=== PATIENT | male | born 1930 | race African-American/Black ===

== ENCOUNTER 2017-12-08 12:40 | Emergency (ER) | payer OTHER ==
[~2017-12-08] VITALS: Ht 182.9 cm; Wt 78.9 kg
[~2017-12-08 12:40] MED LIST: AMOX1TAB58 PO; IBUP200T44 PO; OMEG500C PO; POLY17PO29 PO
[2017-12-08] MEDS ORDERED: IPRATRPIUM/ALBUTEROL 0.5/2.5MG 3 ML NEBU. NEB ONE (13:00)
--- NOTE | 2017-12-08 13:04 | EKG ---
[facility] [address] [place] [address] Test Date: 2017-12-08 Test Time: 12:55:58 Pat Name: EAN MIRAMONTES Department: Room: Gender: M Welder Assembler: : 1930 Requested By: NICK VÁZQUEZ Order Number: [id number] Reading MD: Lavon Grider Measurements Intervals [place] Rate: 81 P: 59 ID: [id number] QRS: -59 QRSD: 100 T: 80 QT: 362 QTc: 421 Interpretive Statements SINUS RHYTHM ABNORMAL LEFT AXIS DEVIATION LEFT ANTERIOR FASCICULAR BLOCK QRS(T) CONTOUR ABNORMALITY CONSISTENT WITH ANTEROSEPTAL INFARCT PROBABLY OLD T ABNORMALITY IN HIGH LATERAL LEADS ABNORMAL ECG Electronically Signed On 12-14-2017 10:12:53 CDT by Lavon Grider
[2017-12-08 13:21] LABS: BASO % 1 % (0-3); EOS # 0.4 x10^3/uL (0.0-0.7); EOS % 7 % (0-3); HEMATOCRIT 42.7 % (39.0-53.0); HEMOGLOBIN 14.4 g/dL (13.0-17.5); LYMPH # 1.2 x10^3/uL (1.0-4.8); LYMPH % 21 % (24-48); MEAN CORPUSCULAR HEMOGLOBIN 30 pg (25-35); MEAN CORPUSCULAR HGB CONC 34 g/dL (31-37); MEAN CORPUSCULAR VOLUME 89 fL (79-100); MONO # 0.7 x10^3/uL (0.0-1.1); MONO % 12 % (0-9); NEUT # 3.6 x10^3uL (1.8-7.7); NEUT % 59 % (31-73); PLATELET COUNT 240 x10^3/uL (140-400); RED BLOOD COUNT 4.79 x10^6/uL (4.30-5.70); RED CELL DISTRIBUTION WIDTH 14.2 % (11.5-14.5)
[2017-12-08 13:29] LABS: CALCIUM 9.6 mg/dL (8.5-10.1); CREATININE 1.4 mg/dL (0.7-1.3); GFR 57.9; POTASSIUM 4.3 mmol/L (3.5-5.1)
--- NOTE | 2017-12-08 13:29 | RAD ---
Portable chest, 12/08/2017: HISTORY: Cough and congestion Comparison is made to a study from 11/15/2013. The heart size is normal. There is tortuosity of the thoracic aorta. No pulmonary infiltrate is seen. There is no evidence of pleural fluid. A small nodular opacity projected over the anterior aspect of the right sixth rib may be a costochondral ossification or represent an overlying granuloma. Old healed rib fractures are present on the left. Moderate spurring is present in the spine. IMPRESSION: 1. Small right basilar nodular opacity. Radiographic follow-up is suggested to confirm that this is a benign process. 2. No acute infiltrates. Electronically signed by: Mukesh Vieira MD (12/08/2017 1:26 PM) [facility]
[2017-12-08 13:38] LABS: ALBUMIN 3.2 g/dL (3.4-5.0); DIRECT BILIRUBIN 0.2 mg/dL (0.0-0.2); TOTAL BILIRUBIN 0.6 mg/dL (0.2-1.0); TOTAL PROTEIN 7.7 g/dL (6.4-8.2)
[2017-12-08 14:16] VITALS: BP 139/92
--- NOTE | 2017-12-08 14:18 | PHYS DOC ---
Past Medical History Past Medical History: Arthritis Past Surgical History: No Surgical History Alcohol Use: Occasionally Drug Use: None Adult General Chief Complaint Chief Complaint: SHORTNESS OF BREATH HPI HPI This is a pleasant 87-year-old male presenting the emergency department with a cough for about a week. He states he has taken medication without much relief. He feels mildly shortness of breath or any chest pain. The cough is nonproductive. He denies fevers or chills associated. He denies abdominal pain nausea or vomiting. Review of systems is negative for chest pain abdominal pain nausea vomiting diaphoresis fevers or chills. All other review of systems is negative unless otherwise noted in history of present illness. ED course: 87-year-old male presenting to the emergency department today with a nonproductive cough for about a week. Chest x-ray unremarkable. Blood work shows an elevated d-dimer. CT angiogram obtained. CBC shows normal white blood cell count. Chemistry panel shows chronic just above the range of normal. No previous for comparison. Troponins negative. D-dimer is elevated. CT angiogram shows no signs of pulmonary embolism. Signs of bronchitis on CT scan. We will discharge patient on oral prednisone to follow-up with his doctor over the next 2-3 days. The patient has been examined and was not found to have an emergency medical condition. The patient was then discharged home in stable condition to follow up with their primary care physician over the next 2-3 days. They were to return if their symptoms worsened or if they were concerned for any reason. They were also instructed to return to the emergency department if they were unable to get the recommended and appropriate follow-up. [id number] discharge instructions and return precautions were given. Patient's questions were answered to their satisfaction. Patient is comfortable with plan. Review of Systems Review of Systems SEE ABOVE. Current Medications Current Medications Current Medications Medications (Trade) Dose Ordered Sig/[facility] Start Time Stop Time Status Last Admin Dose Admin Albuterol/ Ipratropium (Duoneb) 3 ml 1X ONCE 12/08/17 13:00 12/08/17 13:01 DC 12/08/17 13:20 3 ML Info (CONTRAST GIVEN -- Rx MONITORING) 1 each PRN DAILY PRN 12/08/17 14:45 12/10/17 14:44 Iohexol (Omnipaque 300 Mg/ml) 60 ml 1X ONCE 12/08/17 14:30 12/08/17 14:31 DC 12/08/17 14:33 60 ML Allergies Allergies Allergies Coded Allergies Type Severity Reaction Last Updated Verified No Known Drug Allergies 11/13/13 No Physical Exam Physical Exam SEE ABOVE Constitutional: Well developed, well nourished, no acute distress, non-toxic appearance. HENT: Normocephalic, atraumatic, bilateral external ears normal, oropharynx moist, no oral exudates, nose normal. [] Eyes: PERRLA, EOMI, conjunctiva normal, no discharge. [] Neck: Normal range of motion, no tenderness, supple, no stridor. Cardiovascular:Heart rate regular rhythm, no murmur [] Lungs & Thorax: Clear lungs bilaterally. no wheezing on exam. Abdomen: Bowel sounds normal, soft, no tenderness, no masses, no pulsatile masses. Skin: Warm, dry, no erythema, no rash. [] Back: No tenderness, no CVA tenderness. Extremities: No tenderness, no cyanosis, no clubbing, ROM intact, no edema. No clinical evidence of DVT. Neurologic: Alert and oriented X 3, normal motor function, normal sensory function, no focal deficits noted. Psychologic: Affect normal, judgement normal, mood normal. [] Current Patient Data Vital Signs Vital Signs Date Time Temp Pulse Resp B/P (MAP) Pulse Ox O2 Delivery O2 Flow Rate FiO2 12/08/17 13:20 95 Room Air 12/08/17 13:16 76 20 156/88 (110) 12/08/17 12:43 97.1 97.1 Lab Values Laboratory Tests Test 12/08/17 13:05 White Blood Count 6.0 x10^3/uL (4.0-11.0) Red Blood Count 4.79 x10^6/uL (4.30-5.70) Hemoglobin 14.4 g/dL (13.0-17.5) Hematocrit 42.7 % (39.0-53.0) Mean Corpuscular Volume 89 fL (79-100) Mean Corpuscular Hemoglobin 30 pg (25-35) Mean Corpuscular Hemoglobin Concent 34 g/dL (31-37) Red Cell Distribution Width 14.2 % (11.5-14.5) Platelet Count 240 x10^3/uL (140-400) Neutrophils (%) (Auto) 59 % (31-73) Lymphocytes (%) (Auto) 21 % (24-48) L Monocytes (%) (Auto) 12 % (0-9) H Eosinophils (%) (Auto) 7 % (0-3) H Basophils (%) (Auto) 1 % (0-3) Neutrophils # (Auto) 3.6 x10^3uL (1.8-7.7) Lymphocytes # (Auto) 1.2 x10^3/uL (1.0-4.8) Monocytes # (Auto) 0.7 x10^3/uL (0.0-1.1) Eosinophils # (Auto) 0.4 x10^3/uL (0.0-0.7) Basophils # (Auto) 0.0 x10^3/uL (0.0-0.2) D-Dimer (Beverly) 0.90 ug/mlFEU (0.00-0.50) H Sodium Level 140 mmol/L (136-145) Potassium Level 4.3 mmol/L (3.5-5.1) Chloride Level 102 mmol/L (98-107) Carbon Dioxide Level 32 mmol/L (21-32) Anion Gap 6 (6-14) Blood Urea Nitrogen 19 mg/dL (8-26) Creatinine 1.4 mg/dL (0.7-1.3) H Estimated GFR (Cockcroft-Gault) 57.9 Glucose Level 116 mg/dL (70-99) H Calcium Level 9.6 mg/dL (8.5-10.1) Total Bilirubin 0.6 mg/dL (0.2-1.0) Direct Bilirubin 0.2 mg/dL (0.0-0.2) Aspartate Amino Transferase (AST) 26 U/L (15-37) Alanine Aminotransferase (ALT) 27 U/L (16-63) Alkaline Phosphatase 87 U/L (46-116) Troponin I Quantitative < 0.017 ng/mL (0.000-0.055) GK-Rgn-W-Type Natriuretic Peptide 237 pg/mL (0-449) Total Protein 7.7 g/dL (6.4-8.2) Albumin 3.2 g/dL (3.4-5.0) L Lipase 120 U/L (73-393) Laboratory Tests 12/08/17 13:05 Laboratory Tests 12/08/17 13:05 EKG EKG [] Radiology/Procedures Radiology/Procedures [] Course & Med Decision Making Course & Med Decision Making Pertinent Labs and Imaging studies reviewed. (See chart for details) [] Dragon Disclaimer Dragon Disclaimer This electronic medical record was generated, in whole or in part, using a voice recognition dictation system. Departure Departure Impression: Primary Impression: Shortness of breath Additional Impression: Cough Disposition: HOME, SELF-CARE Condition: STABLE Referrals: CAROLA ENRIQUE BAG PRESSER (PCP) Patient Instructions: Acute Bronchitis Additional Instructions: Thank you for allowing us to participate in your care today. Return to the emergency department you have any new or worsening symptoms, or if you are concerned for any reason. Return to emergency department if you have any new or concerning symptoms including but not limited to fever, chills, nausea, vomiting, intractable pain, any new rashes, chest pain, shortness of air , uncontrolled bleeding, difficulty breathing, and/or vision loss. Follow up with your primary care physician within 3 days. Call your Primary Doctor tomorrow and inform them of your visit today. If you do not have a primary care provider we are happy to provide you with a list of our primary care providers contact information. This condition should be evaluated by your primary care physician and any recommended consulting services for continued management within 2-3 days after discharge. If at any time, you are having difficulty getting into your primary care doctor or a specialist, return to the emergency department. Scripts Albuterol Sulfate (PROAIR HFA INHALER) 8.5 Gm Hfa.aer.ad 1 PUFF INH PRN Q6HRS PRN for SHORTNESS OF BREATH, #1 INHALER 0 Refills Prov: NICK VÁZQUEZ MD 12/08/17 Prednisone (PREDNISONE) 50 Mg Tablet 50 MG PO DAILY for 5 Days, #5 TAB Prov: NICK VÁZQUEZ MD 12/08/17 Problem Qualifiers NICK VÁZQUEZ MD Dec 08, 2017 14:18
[2017-12-08] MEDS ORDERED: IOHEXOL 300 MG/ML 100ML VIAL. IV ONE (14:30)
[2017-12-08] MEDS ORDERED: CONTRAST GIVEN. MC PRN (14:45)
--- NOTE | 2017-12-08 14:59 | RAD ---
CTA of the chest with contrast, 12/08/2017: HISTORY: Shortness of breath Multidetector CT imaging was performed following an IV bolus injection of iodinated contrast material. Multiplanar reconstructions were produced including coronal MIP images. The central pulmonary arteries are well opacified and no filling defects are seen to suggest pulmonary emboli. There is moderate calcific plaquing of the thoracic aorta. There is mild dilatation of the aorta just distal to the origin of the left subclavian artery. The ascending aorta measures 3.5 cm in width. The mid aortic arch measures approximately 2.8 cm in width. The proximal descending thoracic aorta measures 4.0 cm in width. There is no evidence of aortic dissection. There is a mildly prominent density adjacent to the azygos vein. It is unclear whether this represents a dilated segment of azygos vein or a mildly enlarged lymph node. There is a mildly enlarged subcarinal lymph node measuring 1.2 cm in short axis dimension. No hilar adenopathy is seen. A calcified granuloma is present laterally in the right lung. Several peripheral linear opacities in the right lower lobe probably represent scars. There appears to be mild bronchial wall thickening as best the right lower lobe. There is mild streaky atelectasis or scarring in the inferior lingula on the left. Several tiny subpleural and perifissural opacities in both lungs are most likely benign. There is no evidence of pleural fluid. IMPRESSION: 1. No CT evidence of central pulmonary emboli. 2. Moderate aortic atherosclerosis with mild dilatation of the proximal descending thoracic aorta. 3. Bilateral pleural/parenchymal scarring. 4. Mild streaky atelectasis or scarring in the lingula. 5. Mild bronchial wall thickening in the right lower lobe compatible with bronchitis. PQRS Compliance Statement: One or more of the following individualized dose reduction techniques were utilized for this examination: 1. Automated exposure control 2. Adjustment of the mA and/or kV according to patient size 3. Use of iterative reconstruction technique Electronically signed by: Mukesh Vieira MD (12/08/2017 2:55 PM) [facility]
[2017-12-08] MEDS ORDERED: PRED50TA PO (15:21)
[2017-12-08] MEDS ORDERED: PROAIR HFA8.5 GM INH (15:22)
== END 2017-12-08 15:33 | disposition home or self-care (01) ==
LOC: ER 12:40
DX: R05 Cough (principal); R06.02 Shortness of breath
CPT/HCPCS: 36415; 71045; 71275; 80048; 80076; 83690; 83880; 84484; 85025; 85379; 93005; 94640; 99285; J7620; Q9967

== ENCOUNTER 2018-07-15 10:25 | Emergency (ER) | payer OTHER ==
[~2018-07-15] VITALS: Ht 182.9 cm; Wt 78.9 kg
[~2018-07-15 10:25] MED LIST changes: +ALBU2.5V8 INH; +PRED50TA PO
--- NOTE | 2018-07-15 10:56 | PHYS DOC ---
Past Medical History Past Medical History: Arthritis, Bronchitis Past Surgical History: No Surgical History Alcohol Use: Occasionally Drug Use: None Adult General Chief Complaint Chief Complaint: COUGH HPI HPI 88-year-old male presenting the emergency department today with a cough with clear sputum production. Been present for 2-3 days. He denies any fevers at home. Mild dyspnea on exertion. He denies unilateral leg swelling hemoptysis or recent immobilization or surgery. He denies a history of DVT or PE. He denies chest pain. Review of systems is negative for chest pain abdominal pain nausea vomiting diaphoresis fevers or chills. All other review of systems is negative unless otherwise noted in history of present illness. ED course: 88-year-old male presenting with a chronic mildly productive cough. Blood pressure elevated. Otherwise patient is breathing comfortably and afebrile the examination room. Chest x-ray and blood work ordered along with the administration of the DuoNeb. Chest x-ray does not suggest an infiltrate. Given his productive cough we'll give him azithromycin with an albuterol to follow-up with his doctor in a few days.The patient has been examined and was not found to have an emergency medical condition. The patient was then discharged home in stable condition to follow up with their primary care physician over the next 1- 2 days. They were to return if their symptoms worsened or if they were concerned for any reason. They were also instructed to return to the emergency department if they were unable to get the recommended and appropriate follow-up. [id number] discharge instructions and return precautions were given. Patient's questions were answered to their satisfaction. Patient is comfortable with plan. Review of Systems Review of Systems SEE ABOVE. Current Medications Current Medications Current Medications Medications (Trade) Dose Ordered Sig/[facility] Start Time Stop Time Status Last Admin Dose Admin Albuterol/ Ipratropium (Duoneb) 3 ml 1X ONCE 07/15/18 11:00 07/15/18 11:01 DC 07/15/18 11:10 3 ML Allergies Allergies Allergies Coded Allergies Type Severity Reaction Last Updated Verified No Known Drug Allergies 11/13/13 No Physical Exam Physical Exam SEE ABOVE Constitutional: Well developed, well nourished, no acute distress, non-toxic appearance. HENT: Normocephalic, atraumatic, bilateral external ears normal, oropharynx moist, no oral exudates, nose normal. [] Eyes: PERRLA, EOMI, conjunctiva normal, no discharge. Neck: Normal range of motion, no tenderness, supple, no stridor. Cardiovascular:Heart rate regular rhythm, no murmur [] Lungs & Thorax: Mildly prolonged expiratory phase without any wheezing. Other cheung clear. Abdomen: Bowel sounds normal, soft, no tenderness, no masses, no pulsatile masses. Skin: Warm, dry, no erythema, no rash. [] Back: No tenderness, no CVA tenderness. Extremities: No tenderness, no cyanosis, no clubbing, ROM intact, no edema. [] Neurologic: Alert and oriented X 3, normal motor function, normal sensory function, no focal deficits noted. Psychologic: Affect normal, judgement normal, mood normal. [] Current Patient Data Vital Signs Vital Signs Date Time Temp Pulse Resp B/P (MAP) Pulse Ox O2 Delivery O2 Flow Rate FiO2 07/15/18 11:10 94 Room Air 07/15/18 10:35 98.0 89 24 189/94 (125) 98.0 Lab Values Laboratory Tests Test 07/15/18 10:52 White Blood Count 4.7 x10^3/uL (4.0-11.0) Red Blood Count 4.76 x10^6/uL (4.30-5.70) Hemoglobin 14.2 g/dL (13.0-17.5) Hematocrit 42.9 % (39.0-53.0) Mean Corpuscular Volume 90 fL (79-100) Mean Corpuscular Hemoglobin 30 pg (25-35) Mean Corpuscular Hemoglobin Concent 33 g/dL (31-37) Red Cell Distribution Width 14.3 % (11.5-14.5) Platelet Count 179 x10^3/uL (140-400) Neutrophils (%) (Auto) 72 % (31-73) Lymphocytes (%) (Auto) 11 % (24-48) L Monocytes (%) (Auto) 12 % (0-9) H Eosinophils (%) (Auto) 5 % (0-3) H Basophils (%) (Auto) 1 % (0-3) Neutrophils # (Auto) 3.4 x10^3uL (1.8-7.7) Lymphocytes # (Auto) 0.5 x10^3/uL (1.0-4.8) L Monocytes # (Auto) 0.6 x10^3/uL (0.0-1.1) Eosinophils # (Auto) 0.2 x10^3/uL (0.0-0.7) Basophils # (Auto) 0.0 x10^3/uL (0.0-0.2) Sodium Level 140 mmol/L (136-145) Potassium Level 4.7 mmol/L (3.5-5.1) Chloride Level 105 mmol/L (98-107) Carbon Dioxide Level 32 mmol/L (21-32) Anion Gap 3 (6-14) L Blood Urea Nitrogen 21 mg/dL (8-26) Creatinine 1.2 mg/dL (0.7-1.3) Estimated GFR (Cockcroft-Gault) 69.0 Glucose Level 140 mg/dL (70-99) H Calcium Level 9.5 mg/dL (8.5-10.1) Laboratory Tests 07/15/18 10:52 Laboratory Tests 07/15/18 10:52 EKG EKG [] Radiology/Procedures Radiology/Procedures [] Course & Med Decision Making Course & Med Decision Making Pertinent Labs and Imaging studies reviewed. (See chart for details) [] Dragon Disclaimer Dragon Disclaimer This electronic medical record was generated, in whole or in part, using a voice recognition dictation system. Departure Departure Impression: Primary Impression: Cough Disposition: 01 HOME, SELF-CARE Condition: STABLE Referrals: CAROLA ENRIQUE MAGAZINE EDITOR (PCP) Patient Instructions: Cough, Adult Additional Instructions: Thank you for allowing us to participate in your care today. Return to the emergency department you have any new or worsening symptoms, or if you are concerned for any reason. Return to emergency department if you have any new or concerning symptoms including but not limited to fever, chills, nausea, vomiting, intractable pain, any new rashes, chest pain, shortness of air, uncontrolled bleeding, difficulty breathing, and/or vision loss. Follow up with your primary care physician within 1-2 days. Call your Primary Doctor tomorrow and inform them of your visit today. If you do not have a primary care provider we are happy to provide you with a list of our primary care providers contact information. This condition should be evaluated by your primary care physician and any recommended consulting services for continued management within 2 days after discharge. If at any time, you are having difficulty getting into your primary care doctor or a specialist, return to the emergency department. Scripts Benzonatate (TESSALON PERLE) 100 Mg Capsule 1 CAP PO TID for 5 Days, #15 CAP Prov: NICK VÁZQUEZ MD 07/15/18 Albuterol Sulfate (PROAIR HFA INHALER) 8.5 Gm Hfa.aer.ad 1 PUFF INH PRN Q6HRS PRN for SHORTNESS OF BREATH for 7 Days, #1 INHALER 0 Refills Prov: NICK VÁZQUEZ MD 07/15/18 Azithromycin (AZITHROMYCIN TABLET) 250 Mg Tablet 1 PKG PO UD, #6 TAB Prov: NICK VÁZQUEZ MD 07/15/18 NICK VÁZQUEZ MD Jul 15, 2018 10:56
[2018-07-15] MEDS ORDERED: IPRATRPIUM/ALBUTEROL 0.5/2.5MG 3 ML NEBU. NEB ONE (11:00)
--- NOTE | 2018-07-15 11:15 | RAD ---
CHEST AP ONLY History: productive cough. The cardiac silhouette is stable as compared with prior study of 12/08/2017. Aortic tortuosity again seen. No evidence of pneumothorax. Mild blunting of right costophrenic angle, somewhat similar to previous study, may be due to scarring. No large effusion is seen. No airspace consolidation is identified. Multiple old rib fractures are seen. Degenerative changes at the shoulders with evidence of right shoulder rotator cuff tear. Small nodular opacity at the right lung base is stable since previous study. IMPRESSION: Stable exam, no acute consolidating infiltrate. Electronically signed by: Kervin Perez MD (07/15/2018 11:13 AM) [id number]
[2018-07-15 11:23] LABS: CALCIUM 9.5 mg/dL (8.5-10.1); CREATININE 1.2 mg/dL (0.7-1.3); POTASSIUM 4.7 mmol/L (3.5-5.1)
[2018-07-15 11:31] LABS: BASO % 1 % (0-3); EOS # 0.2 x10^3/uL (0.0-0.7); EOS % 5 % (0-3); HEMATOCRIT 42.9 % (39.0-53.0); HEMOGLOBIN 14.2 g/dL (13.0-17.5); LYMPH # 0.5 x10^3/uL (1.0-4.8); LYMPH % 11 % (24-48); MEAN CORPUSCULAR HEMOGLOBIN 30 pg (25-35); MEAN CORPUSCULAR HGB CONC 33 g/dL (31-37); MEAN CORPUSCULAR VOLUME 90 fL (79-100); MONO # 0.6 x10^3/uL (0.0-1.1); MONO % 12 % (0-9); NEUT # 3.4 x10^3uL (1.8-7.7); NEUT % 72 % (31-73); PLATELET COUNT 179 x10^3/uL (140-400); RED BLOOD COUNT 4.76 x10^6/uL (4.30-5.70); RED CELL DISTRIBUTION WIDTH 14.3 % (11.5-14.5); WHITE BLOOD COUNT 4.7 x10^3/uL (4.0-11.0)
[2018-07-15] MEDS ORDERED: BENZ100C PO (11:45)
[2018-07-15] MEDS ORDERED: AZIT250T6 PO (11:45)
[2018-07-15] MEDS ORDERED: ALBU2.5V8 INH (11:45)
[2018-07-15 12:02] VITALS: BP 145/81
--- NOTE | 2018-07-15 14:27 | EKG ---
[facility] [address] [place] [address] Test Date: 2018-07-15 Test Time: 10:38:52 Pat Name: EAN MIRAMONTES Department: Room: Gender: M Laboratory Engineer: : [id number] Requested By: NICK VÁZQUEZ Order Number: [id number] Reading MD: Burke Jolly Measurements Intervals [place] Rate: 84 P: 62 DE: 162 QRS: -56 QRSD: 106 T: 87 QT: 350 QTc: 417 Interpretive Statements SINUS RHYTHM ABNORMAL LEFT AXIS DEVIATION LEFT ANTERIOR FASCICULAR BLOCK QRS(T) CONTOUR ABNORMALITY CONSISTENT WITH ANTEROSEPTAL INFARCT AGE UNDETERMINED T ABNORMALITY IN HIGH LATERAL LEADS ABNORMAL ECG Electronically Signed On 07-20-2018 12:08:22 CDT by Burke Jolly
== END 2018-07-15 12:19 | disposition home or self-care (01) ==
LOC: ER 10:25
DX: R05 Cough (principal); R06.00 Dyspnea, unspecified
CPT/HCPCS: 36415; 71045; 80048; 85025; 93005; 94640; 99285; J7620

== ENCOUNTER 2018-08-05 10:41 | Inpatient (IN) | payer OTHER ==
[~2018-08-05] VITALS: Ht 182.9 cm; Wt 76.7 kg
[~2018-08-05 10:41] MED LIST changes: +AZIT250T6 PO; +BENZ100C PO
--- NOTE | 2018-08-05 11:23 | PDOC1 ---
History and Physical Date of Admission Date of Admission DATE: 08/05/18 TIME: 11:23 Identification/Chief Complaint Chief Complaint SEEN IN ER , presents to the ED today complaining of weakness and poor appetite for 2 days. Patient states his also had a cough since we saw him in July 15, 2018. Patient denies any fever. Denies any nasal congestion denies any chest pain or shortness of breath. denies weight loss ua abnormal, lives alone Past Medical History Past Medical History Past Medical History Past Medical History Osteoarthritis Past Surgical History Past Surgical History: small bowel obstruction 2014 Family History Family History: No Significant Current Problem List Problem List Cardiovascular: Hyperlipidemia GI: No pertinent hx Musculoskeletal: Osteoarthritis Past Surgical History Past Surgical History: No pertinent history Family History Family History: No Significant, High Cholestrol Social History Smoke: No ALCOHOL: none Drugs: None Current Medications Current Medications Active Scripts Active Tessalon Perle (Benzonatate) 100 Mg Capsule 1 Cap PO TID 5 Days Proair Hfa Inhaler (Albuterol Sulfate) 8.5 Gm Hfa.aer.ad 1 Puff INH PRN Q6HRS PRN 7 Days Azithromycin Tablet (Azithromycin) 250 Mg Tablet 1 Pkg PO UD Proair Hfa Inhaler (Albuterol Sulfate) 8.5 Gm Hfa.aer.ad 1 Puff INH PRN Q6HRS PRN Prednisone 50 Mg Tablet 50 Mg PO DAILY 5 Days Augmentin 500-125 Tablet (Amoxicillin/Potassium Clav) 1 Each Tablet 1 Tab PO BID Miralax (Polyethylene Glycol 3350) 17 Gm Powd.pack 1 Packet PO DAILY Reported Fish Oil ([place]-3 Fatty Acids) 500 Mg Capsule.dr 500 Mg PO DAILY08 Allergies Allergies: Coded Allergies: No Known Drug Allergies (Unverified , 11/13/13) ROS Review of System Review of Systems Review of Systems Constitutional: Reports generalized weakness, reports poor appetite, denies fever or chills Eyes: Denies change in visual acuity, redness, or eye pain [] HENT: Denies nasal congestion or sore throat [] Respiratory: Reports cough, denies shortness of breath [] Cardiovascular: No additional information not addressed in HPI [] GI: Denies abdominal pain, nausea, vomiting, bloody stools or diarrhea [] : Denies dysuria or hematuria [] Musculoskeletal: Denies back pain or joint pain [] Integument: Denies rash or skin lesions [] Neurologic: Denies headache, focal weakness or sensory changes [] 14 PT systems were reviewed and found to be within normal limits, except as documented Eyes: Yes Decreased vision Hematological and Lymphatic: No: Bleeding Problems, Blood Clots, Blood Transfusions, Brusing, Night Sweats, Pallor, Swollen Lymph Nodes, Other Respiratory: YES: Cough; No: Hemoptysis, Orthopnea, Pleuritic Pain, Shortness of breath, SOB with excertion, Sputum Changes, Stridor, Tachypnea, Wheezing, Other Cardiovascular: No Chest Pain, No Palpitations, No Orthopnea, No Paroxysmal Noc. Dyspnea, No Edema, No Lt Headedness, No Other Neurological: Yes Gait Disturbance Physical Exam Physical Exam Physical Exam Physical Exam Constitutional: Well developed, well nourished, no acute distress, non-toxic appearance. [] HENT: Normocephalic, atraumatic, bilateral external ears normal, oropharynx moist, no oral exudates, nose normal. [] Eyes: PERRLA, EOMI, conjunctiva normal, no discharge. [] Neck: Normal range of motion, no tenderness, supple, no stridor. [] Cardiovascular:Heart rate regular rhythm, no murmur [] Lungs & Thorax: Bilateral breath sounds clear to auscultation [] Abdomen: Bowel sounds normal, soft, no tenderness, no masses, no pulsatile masses. [] Skin: Warm, dry, no erythema, no rash. [] Back: No tenderness, no CVA tenderness. [] Extremities: No tenderness, no cyanosis, no clubbing, ROM intact, no edema. [] Neurologic: Alert and oriented X 3, normal motor function, normal sensory function, no focal deficits noted. [] Psychologic: Affect normal, judgement normal, mood normal. [] General: Alert, Oriented X3, Cooperative, mild distress Lungs: Clear to auscultation, Normal air movement Heart: RRR Abdomen: Normal bowel sounds, Soft Rectal Exam: not examined Extremities: No cyanosis Neuro: Normal speech, Cranial nerves 3-12 NL Psych/Mental Status: Mental status NL, Mood NL Vitals Vitals Vital Signs Date Time Temp Pulse Resp B/P (MAP) Pulse Ox O2 Delivery O2 Flow Rate FiO2 08/05/18 10:59 98.7 107 20 143/84 (103) 96 Room Air 98.7 Images Images EXAM: CHEST 1 VIEW History: Cough COMPARISON: 07/15/2018 TECHNIQUE: Single portable radiograph of the chest FINDINGS: The cardiac silhouette is unremarkable. The lungs are clear bilaterally. The costophrenic sulci are clear and well demarcated. IMPRESSION: No radiographic evidence of an acute cardiopulmonary process. Electronically signed by: Yovanny Jiménez MD (08/05/2018 11:32 AM) [place] [id number] VTE Prophylaxis Ordered VTE Prophylaxis Devices: Yes VTE Pharmacological Prophylaxi: Yes Assessment/Plan Assessment/Plan impression 1. generalized weakness 2, cough, bronchitis 3. leukocytosis 4. possible uti plan blood cult iv rocephin tele monitor neurochecks q 4 hrs PT/OT URINE CULT dvt prophylaxis home meds ct head TOM OROZCO MD August 05, 2018 11:23
[2018-08-05] MEDS ORDERED: IV NORMAL SALINE 1000ML BAG 1,000 ML IV ONE ×2 (11:30→12:30)
[2018-08-05 11:33] LABS: BASO % 0 % (0-3); EOS % 0 % (0-3); HEMATOCRIT 43.3 % (39.0-53.0); LYMPH # 0.3 x10^3/uL (1.0-4.8); LYMPH % 3 % (24-48); MEAN CORPUSCULAR HEMOGLOBIN 29 pg (25-35); MEAN CORPUSCULAR HGB CONC 32 g/dL (31-37); MEAN CORPUSCULAR VOLUME 89 fL (79-100); MONO # 0.9 x10^3/uL (0.0-1.1); MONO % 8 % (0-9); NEUT # 10.9 x10^3uL (1.8-7.7); NEUT % 90 % (31-73); PLATELET COUNT 253 x10^3/uL (140-400); RED BLOOD COUNT 4.87 x10^6/uL (4.30-5.70); RED CELL DISTRIBUTION WIDTH 14.1 % (11.5-14.5); WHITE BLOOD COUNT 12.1 x10^3/uL (4.0-11.0)
--- NOTE | 2018-08-05 11:35 | RAD ---
EXAM: CHEST 1 VIEW History: Cough COMPARISON: 07/15/2018 TECHNIQUE: Single portable radiograph of the chest FINDINGS: The cardiac silhouette is unremarkable. The lungs are clear bilaterally. The costophrenic sulci are clear and well demarcated. IMPRESSION: No radiographic evidence of an acute cardiopulmonary process. Electronically signed by: Yovanny Jiménez MD (08/05/2018 11:32 AM) [facility]
[2018-08-05 11:46] LABS: CALCIUM 9.8 mg/dL (8.5-10.1); CREATININE 1.3 mg/dL (0.7-1.3); GFR 62.9; POTASSIUM 4.2 mmol/L (3.5-5.1)
[2018-08-05 11:51] LABS: ALBUMIN 2.9 g/dL (3.4-5.0); ALBUMIN/GLOBULIN RATIO 0.6 (1.0-1.7); MAGNESIUM 2.1 mg/dL (1.8-2.4); TOTAL PROTEIN 7.7 g/dL (6.4-8.2)
[2018-08-05 11:58] LABS: % BANDS 30 % (0-9); % LYMPHS 3 % (24-48); % MONOS 9 % (0-10); % SEGS 58 % (35-66); PLT ESTIMATE ADEQUATE (ADEQUATE)
[2018-08-05 12:00] LABS: CREATINE KINASE 73 U/L (39-308)
[2018-08-05] MEDS ORDERED: ACETAMINOPHEN 325 MG TABLET. PO PRN (12:30)
[2018-08-05] MEDS ORDERED: ONDANSETRON PF 4 MG/2 ML VIAL. IV PRN (12:30)
--- NOTE | 2018-08-05 12:44 | EKG ---
[facility] [address] [place] [address] Test Date: 2018-08-05 Test Time: 11:13:18 Pat Name: AEN MIRAMONTES Department: Room: Gender: M Hands Parter: : 1930 Requested By: BERT CHAVEZ Order Number: [id number] Reading MD: Lavon Grider Measurements Intervals Flanagan Rate: 103 P: 65 MS: 160 QRS: -62 QRSD: 106 T: 88 QT: 324 QTc: 426 Interpretive Statements SINUS TACHYCARDIA ABNORMAL LEFT AXIS DEVIATION LEFT ANTERIOR FASCICULAR BLOCK QRS(T) CONTOUR ABNORMALITY CONSISTENT WITH ANTEROSEPTAL INFARCT PROBABLY OLD T ABNORMALITY IN HIGH LATERAL LEADS ABNORMAL ECG Electronically Signed On 08-26-2018 12:29:40 CDT by Lavon Grider
[2018-08-05 13:52] LABS: BILIRUBIN,URINE NEGATIVE (NEG); CLARITY,URINE CLEAR; COLOR,URINE AMBER; NITRITE,URINE NEGATIVE (NEG); PH,URINE 6.5; PROTEIN,URINE NEGATIVE (NEG-TRACE); UROBILINOGEN,URINE 0.2 mg/dL (0.2 mg/dL)
[2018-08-05 14:07] LABS: BACTERIA,URINE 0 /HPF (0-FEW); RBC,URINE OCC /HPF (0-2); SQUAMOUS EPITHELIAL CELL,UR OCC /LPF
--- NOTE | 2018-08-05 14:08 | PHYS DOC ---
Past Medical History Past Medical History: Arthritis, Bronchitis Past Surgical History: No Surgical History Alcohol Use: Occasionally Drug Use: None Adult General Chief Complaint Chief Complaint: WEAKNESS/GENERALIZED HPI HPI Patient is a 88 year old female with no significant medical history who presents to the ED today complaining of weakness and poor appetite for 2 days. Patient states his also had a cough since we saw him in July 15, 2018. Patient denies any fever. Denies any nasal congestion denies any chest pain or shortness of breath. Review of Systems Review of Systems Constitutional: Reports generalized weakness, reports poor appetite, denies fe rush or chills Eyes: Denies change in visual acuity, redness, or eye pain [] HENT: Denies nasal congestion or sore throat [] Respiratory: Reports cough, denies shortness of breath [] Cardiovascular: No additional information not addressed in HPI [] GI: Denies abdominal pain, nausea, vomiting, bloody stools or diarrhea [] : Denies dysuria or hematuria [] Musculoskeletal: Denies back pain or joint pain [] Integument: Denies rash or skin lesions [] Neurologic: Denies headache, focal weakness or sensory changes [] All other systems were reviewed and found to be within normal limits, except as documented in this note. Current Medications Current Medications Current Medications Medications (Trade) Dose Ordered Sig/Meghana Start Time Stop Time Status Last Admin Dose Admin Acetaminophen (Tylenol) 650 mg PRN Q4HRS PRN 08/05/18 12:30 08/06/18 12:29 Ondansetron HCl (Zofran) 4 mg PRN Q8HRS PRN 08/05/18 12:30 08/06/18 12:29 Sodium Chloride 1,000 ml @ 75 mls/hr 1X ONCE 08/05/18 12:30 08/06/18 01:49 Allergies Allergies Allergies Coded Allergies Type Severity Reaction Last Updated Verified No Known Drug Allergies 11/13/13 No Physical Exam Physical Exam Constitutional: Well developed, well nourished, no acute distress, non-toxic appearance. [] HENT: Normocephalic, atraumatic, bilateral external ears normal, oropharynx moist, no oral exudates, nose normal. [] Eyes: PERRLA, EOMI, conjunctiva normal, no discharge. [] Neck: Normal range of motion, no tenderness, supple, no stridor. [] Cardiovascular:Heart rate regular rhythm, no murmur [] Lungs & Thorax: Bilateral breath sounds clear to auscultation [] Abdomen: Bowel sounds normal, soft, no tenderness, no masses, no pulsatile masses. [] Skin: Warm, dry, no erythema, no rash. [] Back: No tenderness, no CVA tenderness. [] Extremities: No tenderness, no cyanosis, no clubbing, ROM intact, no edema. [] Neurologic: Alert and oriented X 3, normal motor function, normal sensory function, no focal deficits noted. [] Psychologic: Affect normal, judgement normal, mood normal. [] Current Patient Data Vital Signs Vital Signs Date Time Temp Pulse Resp B/P (MAP) Pulse Ox O2 Delivery O2 Flow Rate FiO2 08/05/18 12:53 97 95 08/05/18 10:59 98.7 20 143/84 (103) Room Air 98.7 Lab Values Laboratory Tests Test 08/05/18 11:20 White Blood Count 12.1 x10^3/uL (4.0-11.0) H Red Blood Count 4.87 x10^6/uL (4.30-5.70) Hemoglobin 14.0 g/dL (13.0-17.5) Hematocrit 43.3 % (39.0-53.0) Mean Corpuscular Volume 89 fL (79-100) Mean Corpuscular Hemoglobin 29 pg (25-35) Mean Corpuscular Hemoglobin Concent 32 g/dL (31-37) Red Cell Distribution Width 14.1 % (11.5-14.5) Platelet Count 253 x10^3/uL (140-400) Neutrophils (%) (Auto) 90 % (31-73) H Lymphocytes (%) (Auto) 3 % (24-48) L Monocytes (%) (Auto) 8 % (0-9) Eosinophils (%) (Auto) 0 % (0-3) Basophils (%) (Auto) 0 % (0-3) Neutrophils # (Auto) 10.9 x10^3uL (1.8-7.7) H Lymphocytes # (Auto) 0.3 x10^3/uL (1.0-4.8) L Monocytes # (Auto) 0.9 x10^3/uL (0.0-1.1) Eosinophils # (Auto) 0.0 x10^3/uL (0.0-0.7) Basophils # (Auto) 0.0 x10^3/uL (0.0-0.2) Segmented Neutrophils % 58 % (35-66) Band Neutrophils % 30 % (0-9) H Lymphocytes % 3 % (24-48) L Monocytes % 9 % (0-10) Platelet Estimate Adequate (ADEQUATE) Sodium Level 139 mmol/L (136-145) Potassium Level 4.2 mmol/L (3.5-5.1) Chloride Level 102 mmol/L (98-107) Carbon Dioxide Level 29 mmol/L (21-32) Anion Gap 8 (6-14) Blood Urea Nitrogen 29 mg/dL (8-26) H Creatinine 1.3 mg/dL (0.7-1.3) Estimated GFR (Cockcroft-Gault) 62.9 BUN/Creatinine Ratio 22 (6-20) H Glucose Level 138 mg/dL (70-99) H Calcium Level 9.8 mg/dL (8.5-10.1) Magnesium Level 2.1 mg/dL (1.8-2.4) Total Bilirubin 1.0 mg/dL (0.2-1.0) Aspartate Amino Transferase (AST) 26 U/L (15-37) Alanine Aminotransferase (ALT) 26 U/L (16-63) Alkaline Phosphatase 86 U/L (46-116) Creatine Kinase 73 U/L (39-308) Creatine Kinase MB (Mass) 1.0 ng/mL (0.0-3.6) Creatine Kinase MB Relative Index % (0-4) Troponin I Quantitative < 0.017 ng/mL (0.000-0.055) WG-Xhw-[id number]-Type Natriuretic Peptide 267 pg/mL (0-449) Total Protein 7.7 g/dL (6.4-8.2) Albumin 2.9 g/dL (3.4-5.0) L Albumin/Globulin Ratio 0.6 (1.0-1.7) L Laboratory Tests 08/05/18 11:20 Laboratory Tests 08/05/18 11:20 EKG EKG 11:[address] Harding sinus tachycardia HR 103 no STEMI[] Radiology/Procedures Radiology/Procedures []PROCEDURE: PORTABLE CHEST 1V EXAM: CHEST 1 VIEW History: Cough COMPARISON: 07/15/2018 TECHNIQUE: Single portable radiograph of the chest FINDINGS: The cardiac silhouette is unremarkable. The lungs are clear bilaterally. The costophrenic sulci are clear and well demarcated. IMPRESSION: No radiographic evidence of an acute cardiopulmonary process. Electronically signed by: Yovanny Jiménez MD (08/05/2018 11:32 AM) [facility] DICTATED and SIGNED BY: YOVANNY JIMÉNEZ MD DATE: 08/05/18 113 Course & Med Decision Making Course & Med Decision Making Pertinent Labs and Imaging studies reviewed. (See chart for details) His is a 88-year-old male patient presented to the ED today complaining of poor appetite and generalized weakness for 2 days. Also complaining of a cough since July 15, 2018 when we saw him in the ED. CBC with a WBC of 12.1, CMP with glucose of 113, anion gap is normal, BUN 29. Chest x-ray is negative for pneumonia. Patient was started on IV fluids. Spoke with Dr. Bernard who accepted patient for admission. Dragon Disclaimer Dragon Disclaimer This electronic medical record was generated, in whole or in part, using a voice recognition dictation system. Departure Departure Impression: Primary Impression: Generalized weakness Additional Impression: Cough Disposition: ADMITTED INPATIENT Condition: STABLE Referrals: CAROLA EN[facility]IST[facility] (PCP) Problem Qualifiers BERT CHAVEZ APRN August 05, 2018 14:08
[2018-08-05 15:20] VITALS: BP 134/80
[2018-08-05] MEDS ORDERED: ALBUTEROL SULFATE 2.5 MG/3 ML NEBU. INH PRN (17:15)
[2018-08-05] MEDS ORDERED: cefTRIAXone IV Push 1 GM VIAL. IVP SCH (18:00)
[2018-08-05 19:00] VITALS: BP 139/82
--- NOTE | 2018-08-05 19:37 | PDOC2 ---
NEUROLOGY CONSULT Date of Admission Date of Admission DATE: 08/05/18 TIME: 19:28 Reason for Consult Reason for Consult: IMPRESSION: Generalized weakness. Cognitive impairment. HTN HLD. CHF? OA. RECOMMENDATIONS/PLAN: HCT and CCT w/o contrast. Lab: see orders. Treat medical diseases. OT/PT. HISTORY OF THE PRESENT ILLNESS: This is an 88-y-old AA male patient who was brought to the ER of [facility] complaining of weakness and poor appetite for 2 days. Patient states his also had a cough since we saw him in July 15, 2018. Patient denies any fever. Denies any nasal congestion denies any chest pain or shortness of breath. denies weight loss. No focalized motor deficits complained. Past Medical History Osteoarthritis. HLD. Past Surgical History Small bowel obstruction 2014 Family History High Cholestrol ALLERGY: NKDA MEDICATIONS: Refer to MAR SOCIAL HISTORY: Lives alone. Denies current smoking, drinking, and illicit drug use. REVIEW OF SYSTEMS: Constitutional: No malnutrition, weight loss, cachexia. Head: No traumatic brain or head injury. Skin: No edema, or rash. Ear: No infection. Eyes: No vision loss or color blindness. Nose: No bleeding or purulent discharges. Hearing: Hearing decrease. Neck: No injury. Cardiac: HLD. Pulmonary: No COPD. GI: No GI ulcer, GI bleeding. Urinary/genital: UTI. Endocrinologic: No cousin face, craniofacial dysmorphism, polydactyly. Skeletomuscular: Generalized weakness. Neurological: see HP. Psychiatric: Denies drug use/abuse. Otherwise, not [id number] review of systems. PHYSICAL EXAMINATION: General appearance is in subacute distress. HEENT: Normocephalic and nontraumatic. Eyes, nose, ears, and throat are unremarkable. Neck is supple. No lymphadenopathy. No crepitus. Cardiovascular: S1, S2, regular rate and rhythm. Pulmonary: mildly decreased to auscultation bilaterally. Abdomen: Bowel sounds are positive. Extremities: No rash, lesions, or edema. No restriction of range of motion NEUROLOGICAL EXAMINATION: Awake. Not fully oriented to time, place and person. PERRL. EOMI. CN: no focal findings. Muscle tone: within normal. Muscle strength: 4-5 DTR: 1-2 Plantar reflex: Neutral response bilaterally Gait: not examined in bed. Sensory exam: no abnormal findings. No acute cerebellar signs elicited. F-T-N test not performed. Current Medications Current Medications Current Medications Sodium Chloride 1,000 ml @ 1,000 mls/hr 1X ONCE IV Last administered on 08/05/18at 11:29; Start 08/05/18 at 11:30; Stop 08/05/18 at 12:29; Status DC Ondansetron HCl (Zofran) 4 mg PRN Q8HRS PRN IV NAUSEA/VOMITING; Start 08/05/18 at 12:30; Stop 08/06/18 at 12:29 Acetaminophen (Tylenol) 650 mg PRN Q4HRS PRN PO FEVER; Start 08/05/18 at 12:30; Stop 08/06/18 at 12:29 Sodium Chloride 1,000 ml @ 75 mls/hr 1X ONCE IV ; Start 08/05/18 at 12:30; Stop 08/06/18 at 01:49 Ceftriaxone Sodium (Rocephin) 1 gm Q24H IVP ; Start 08/05/18 at 18:00 Albuterol Sulfate (Ventolin Neb Soln) 2.5 mg PRN Q6HRS PRN INH SHORTNESS OF BREATH; Start 08/05/18 at 17:15 Benzonatate (Tessalon Perle) 100 mg [id number] PO ; Start 08/05/18 at 18:00 Fish Oil (Fish Oil) 1,000 mg DAILY08 PO ; Start 08/06/18 at 08:00 Polyethylene Glycol (miraLAX PACKET) 17 gm DAILY PO ; Start 08/06/18 at 09:00 Enoxaparin Sodium (Lovenox 30mg Syringe) 30 mg Q24H SQ ; Start 08/05/18 at 21:00 Active Scripts Active Tessalon Perle (Benzonatate) 100 Mg Capsule 1 Cap PO TID 5 Days Proair Hfa Inhaler (Albuterol Sulfate) 8.5 Gm Hfa.aer.ad 1 Puff INH PRN Q6HRS PRN 7 Days Azithromycin Tablet (Azithromycin) 250 Mg Tablet 1 Pkg PO UD Proair Hfa Inhaler (Albuterol Sulfate) 8.5 Gm Hfa.aer.ad 1 Puff INH PRN Q6HRS PRN Prednisone 50 Mg Tablet 50 Mg PO DAILY 5 Days Augmentin 500-125 Tablet (Amoxicillin/Potassium Clav) 1 Each Tablet 1 Tab PO BID Miralax (Polyethylene Glycol 3350) 17 Gm Powd.pack 1 Packet PO DAILY Reported Fish Oil ([place]-3 Fatty Acids) 500 Mg Capsule.dr 500 Mg PO DAILY08 Allergies Allergies: Allergies Coded Allergies Type Severity Reaction Last Updated Verified No Known Drug Allergies 11/13/13 No ROS Review of System The patient denies any associated fevers, chills, headache, ear pain, rhinorrhea, sore throat, stiff neck, productive cough, chest pain, shortness of breath, back or flank pain, abdominal pain, nausea, vomiting, diarrhea, constipation, dysuria, rash, numbness, weakness, tingling, incontinence, difficulty ambulating, or diaphoresis. Physical Exam Physical Exam General: Well developed, well nourished, no acute distress, well appearing HEENT: Pupils equally round and reactive to light, EOMI, no discharge, normal conjunctiva Neck: Supple, no nuchal rigidity, no JVD, trachea midline, no tenderness Cardiac: RRR, no murmurs, no gallops, no rubs Chest/Lungs: CTAB, no wheeze, no rhonchi, no crackles Abdomen: soft, non-distended, no guarding, no peritoneal signs, non-tender Back: No tenderness Extremities: no edema, pulses intact, non-tender,capillary refill <3 sec bilateral upper and lower extremities, Neuro: Alert and oriented x 4, no focal deficits, normal speech Vitals Vitals: Vital Signs Date Time Temp Pulse Resp B/P (MAP) Pulse Ox O2 Delivery O2 Flow Rate FiO2 08/05/18 16:00 Room Air 08/05/18 15:20 98.3 100 18 134/80 (98) 96 98.3 Labs Labs Laboratory Tests Test 08/05/18 11:20 08/05/18 13:23 White Blood Count 12.1 x10^3/uL (4.0-11.0) Red Blood Count 4.87 x10^6/uL (4.30-5.70) Hemoglobin 14.0 g/dL (13.0-17.5) Hematocrit 43.3 % (39.0-53.0) Mean Corpuscular Volume 89 fL (79-100) Mean Corpuscular Hemoglobin 29 pg (25-35) Mean Corpuscular Hemoglobin Concent 32 g/dL (31-37) Red Cell Distribution Width 14.1 % (11.5-14.5) Platelet Count 253 x10^3/uL (140-400) Neutrophils (%) (Auto) 90 % (31-73) Lymphocytes (%) (Auto) 3 % (24-48) Monocytes (%) (Auto) 8 % (0-9) Eosinophils (%) (Auto) 0 % (0-3) Basophils (%) (Auto) 0 % (0-3) Neutrophils # (Auto) 10.9 x10^3uL (1.8-7.7) Lymphocytes # (Auto) 0.3 x10^3/uL (1.0-4.8) Monocytes # (Auto) 0.9 x10^3/uL (0.0-1.1) Eosinophils # (Auto) 0.0 x10^3/uL (0.0-0.7) Basophils # (Auto) 0.0 x10^3/uL (0.0-0.2) Segmented Neutrophils % 58 % (35-66) Band Neutrophils % 30 % (0-9) Lymphocytes % 3 % (24-48) Monocytes % 9 % (0-10) Platelet Estimate Adequate (ADEQUATE) Sodium Level 139 mmol/L (136-145) Potassium Level 4.2 mmol/L (3.5-5.1) Chloride Level 102 mmol/L (98-107) Carbon Dioxide Level 29 mmol/L (21-32) Anion Gap 8 (6-14) Blood Urea Nitrogen 29 mg/dL (8-26) Creatinine 1.3 mg/dL (0.7-1.3) Estimated GFR (Cockcroft-Gault) 62.9 BUN/Creatinine Ratio 22 (6-20) Glucose Level 138 mg/dL (70-99) Calcium Level 9.8 mg/dL (8.5-10.1) Magnesium Level 2.1 mg/dL (1.8-2.4) Total Bilirubin 1.0 mg/dL (0.2-1.0) Aspartate Amino Transf (AST/SGOT) 26 U/L (15-37) Alanine Aminotransferase (ALT/SGPT) 26 U/L (16-63) Alkaline Phosphatase 86 U/L (46-116) Creatine Kinase 73 U/L (39-308) Creatine Kinase MB (Mass) 1.0 ng/mL (0.0-3.6) Creatine Kinase MB Relative Index % (0-4) Troponin I Quantitative < 0.017 ng/mL (0.000-0.055) UR-Lub-A-Type Natriuretic Peptide 267 pg/mL (0-449) Total Protein 7.7 g/dL (6.4-8.2) Albumin 2.9 g/dL (3.4-5.0) Albumin/Globulin Ratio 0.6 (1.0-1.7) Vitamin B12 Level 315 pg/mL (247-911) Thyroid Stimulating Hormone (TSH) 2.132 uIU/mL (0.358-3.74) Urine Color Jennifer Urine Clarity Clear Urine pH 6.5 Urine Specific [place] 1.025 Urine Protein Negative mg/dL (NEG-TRACE) Urine Glucose (UA) Negative mg/dL (NEG) Urine Ketones (Stick) Negative mg/dL (NEG) Urine Blood Negative (NEG) Urine Nitrite Negative (NEG) Urine Bilirubin Negative (NEG) Urine Urobilinogen Dipstick 0.2 mg/dL (0.2 mg/dL) Urine Leukocyte Esterase Small (NEG) Urine RBC Occ /HPF (0-2) Urine WBC 1-4 /HPF (0-4) Urine Squamous Epithelial Cells Occ /LPF Urine Bacteria 0 /HPF (0-FEW) Urine Mucus Mod /LPF Laboratory Tests Test 08/05/18 11:20 08/05/18 13:23 White Blood Count 12.1 x10^3/uL (4.0-11.0) Red Blood Count 4.87 x10^6/uL (4.30-5.70) Hemoglobin 14.0 g/dL (13.0-17.5) Hematocrit 43.3 % (39.0-53.0) Mean Corpuscular Volume 89 fL (79-100) Mean Corpuscular Hemoglobin 29 pg (25-35) Mean Corpuscular Hemoglobin Concent 32 g/dL (31-37) Red Cell Distribution Width 14.1 % (11.5-14.5) Platelet Count 253 x10^3/uL (140-400) Neutrophils (%) (Auto) 90 % (31-73) Lymphocytes (%) (Auto) 3 % (24-48) Monocytes (%) (Auto) 8 % (0-9) Eosinophils (%) (Auto) 0 % (0-3) Basophils (%) (Auto) 0 % (0-3) Neutrophils # (Auto) 10.9 x10^3uL (1.8-7.7) Lymphocytes # (Auto) 0.3 x10^3/uL (1.0-4.8) Monocytes # (Auto) 0.9 x10^3/uL (0.0-1.1) Eosinophils # (Auto) 0.0 x10^3/uL (0.0-0.7) Basophils # (Auto) 0.0 x10^3/uL (0.0-0.2) Segmented Neutrophils % 58 % (35-66) Band Neutrophils % 30 % (0-9) Lymphocytes % 3 % (24-48) Monocytes % 9 % (0-10) Platelet Estimate Adequate (ADEQUATE) Sodium Level 139 mmol/L (136-145) Potassium Level 4.2 mmol/L (3.5-5.1) Chloride Level 102 mmol/L (98-107) Carbon Dioxide Level 29 mmol/L (21-32) Anion Gap 8 (6-14) Blood Urea Nitrogen 29 mg/dL (8-26) Creatinine 1.3 mg/dL (0.7-1.3) Estimated GFR (Cockcroft-Gault) 62.9 BUN/Creatinine Ratio 22 (6-20) Glucose Level 138 mg/dL (70-99) Calcium Level 9.8 mg/dL (8.5-10.1) Magnesium Level 2.1 mg/dL (1.8-2.4) Total Bilirubin 1.0 mg/dL (0.2-1.0) Aspartate Amino Transf (AST/SGOT) 26 U/L (15-37) Alanine Aminotransferase (ALT/SGPT) 26 U/L (16-63) Alkaline Phosphatase 86 U/L (46-116) Creatine Kinase 73 U/L (39-308) Creatine Kinase MB (Mass) 1.0 ng/mL (0.0-3.6) Creatine Kinase MB Relative Index % (0-4) Troponin I Quantitative < 0.017 ng/mL (0.000-0.055) VU-Zoo-G-Type Natriuretic Peptide 267 pg/mL (0-449) Total Protein 7.7 g/dL (6.4-8.2) Albumin 2.9 g/dL (3.4-5.0) Albumin/Globulin Ratio 0.6 (1.0-1.7) Vitamin B12 Level 315 pg/mL (247-911) Thyroid Stimulating Hormone (TSH) 2.132 uIU/mL (0.358-3.74) Urine Color Jennifer Urine Clarity Clear Urine pH 6.5 Urine Specific [place] 1.025 Urine Protein Negative mg/dL (NEG-TRACE) Urine Glucose (UA) Negative mg/dL (NEG) Urine Ketones (Stick) Negative mg/dL (NEG) Urine Blood Negative (NEG) Urine Nitrite Negative (NEG) Urine Bilirubin Negative (NEG) Urine Urobilinogen Dipstick 0.2 mg/dL (0.2 mg/dL) Urine Leukocyte Esterase Small (NEG) Urine RBC Occ /HPF (0-2) Urine WBC 1-4 /HPF (0-4) Urine Squamous Epithelial Cells Occ /LPF Urine Bacteria 0 /HPF (0-FEW) Urine Mucus Mod /LPF ANTHONY HAAS MD August 05, 2018 19:37
[2018-08-05] MEDS: BENZONATATE 100 MG CAPSULE. PO SCH ×2 (20:03→22:13)
[2018-08-05] MEDS ORDERED: ENOXAPARIN 30 MG/0.3 ML SYRINGE. SQ SCH (21:00)
[2018-08-05 23:00] VITALS: BP 133/75
[2018-08-06 03:00] VITALS: BP 140/79
[2018-08-06 06:48] LABS: CALCIUM 9.4 mg/dL (8.5-10.1); CREATININE 1.1 mg/dL (0.7-1.3); GFR 76.3; POTASSIUM 4.4 mmol/L (3.5-5.1)
[2018-08-06 06:56] LABS: BASO % 0 % (0-3); EOS % 0 % (0-3); HEMATOCRIT 38.8 % (39.0-53.0); LYMPH # 0.9 x10^3/uL (1.0-4.8); LYMPH % 10 % (24-48); MEAN CORPUSCULAR HEMOGLOBIN 30 pg (25-35); MEAN CORPUSCULAR HGB CONC 34 g/dL (31-37); MEAN CORPUSCULAR VOLUME 89 fL (79-100); MONO % 11 % (0-9); NEUT # 7.7 x10^3uL (1.8-7.7); NEUT % 79 % (31-73); PLATELET COUNT 205 x10^3/uL (140-400); RED BLOOD COUNT 4.34 x10^6/uL (4.30-5.70); RED CELL DISTRIBUTION WIDTH 13.8 % (11.5-14.5); WHITE BLOOD COUNT 9.7 x10^3/uL (4.0-11.0)
[2018-08-06 07:00] VITALS: BP 131/82
--- NOTE | 2018-08-06 07:49 | RAD ---
Examination: CT head and cervical spine without contrast CT HEAD INDICATION: Weakness COMPARISON: None Available. Exposure: One or more of the following individualized dose reduction techniques were utilized for this examination: 1. Automated exposure control 2. Adjustment of the mA and/or kV according to patient size 3. Use of iterative reconstruction technique TECHNIQUE: 5 mm contiguous axial images were obtained from the skull base to the vertex in both bone and soft tissue algorithm. FINDINGS: Mild bilateral periventricular white matter hypodensities likely chronic small vessel ischemic disease. No evidence of acute intracranial hemorrhage. No extra-axial fluid collections. No mass effect or midline shift. Ventricular size is appropriate. Basal cisterns are patent. No fractures identified.Borjas-white differentiation is preserved.Globes and orbits are within normal limits. Paranasal sinuses and mastoid air cells are clear. IMPRESSION: No acute intracranial findings. CT CERVICAL SPINE COMPARISON: None Available. Technique: 2.5 mm contiguous axial images were obtained from the skull base through the cervicothoracic junction in both bone and soft tissue algorithm. Additional sagittal and coronal reconstructions were also performed. FINDINGS: Vertebral body height and alignment are maintained. Cervical lordosis is preserved. The lateral masses of C1 are aligned upon C2. No fractures identified. The bony canal is patent throughout. Moderate intervertebral disc height loss identified throughout the cervical spine. Small anterior and posterior osteophyte formation identified in the cervical spine. The paraspinous soft tissues are unremarkable. Visualized intracranial contents are unremarkable. Lung apices are clear. IMPRESSION: 1. No acute fracture cervical spine. Correlate clinically. 2. Moderate multilevel degenerative changes cervical spine. Electronically signed by: Yovanny Jiménez MD (08/06/2018 7:47 AM) [facility]
--- NOTE | 2018-08-06 07:55 | RAD ---
Clinical Indications: Weakness. Exam : Carotid Duplex with Grayscale Ultrasound and Spectral and Color Doppler Analysis: PQRS Compliance Statement - Stenosis calculations for CT, MR and conventional angiography are based upon measurement of the distal ICA diameter in accordance with the NASCET methodology. Stenosis calculations for carotid ultrasound studies are derived from validated velocity criteria which are known to correlate with the NASCET methodology. Comparison study: None available. Findings: The common, internal and external carotid arteries were examined by grayscale, color and spectral Doppler ultrasound. Mild atherosclerotic plaque identified in the bilateral carotid bulbs and the internal carotid arteries. Flow in both vertebral arteries was antegrade and normal. The following are the velocities and ratios in the carotid arteries on both sides: RIGHT ICA PV: 87cm/sec RIGHT CCA PV: 75cm/sec RIGHT ICA ED: 22cm/sec RIGHT IC/CCPV: 1.1 RIGHT VERTEBRAL: antegrade flow RIGHT % STENOSIS: Less than 50 percent LEFT ICA PV: 104cm/sec LEFT CCA PV: 71cm/sec LEFT ICA ED: 18cm/sec LEFT IC/CCPV: 1.6 LEFT VERTEBRAL: antegrade flow LEFT % STENOSIS: Less than 50 percent <50% ICA Stenosis: PSV < 125cm/s (EDV < 40cm/s; SVR < 2.0) 50-69% ICA Stenosis: PSV < 125-229cm/s (EDV 40-99cm/s; SVR 2.0-3.9) >70% ICA Stenosis: PSV > 230cm/s (EDV >100cm/s; SVR >4.0) Impression: No evidence of hemodynamically significant stenosis. Electronically signed by: Yovanny Jiménez MD (08/06/2018 7:53 AM) [facility]
[2018-08-06] MEDS: OMEGA-3 FATTY ACIDS/FISH OIL 1,000 MG CAPSULE. PO SCH (09:17)
[2018-08-06] MEDS: POLYETHYLENE GLYCOL 3350 17 GM PACKET. PO SCH (09:17)
[2018-08-06] MEDS: BENZONATATE 100 MG CAPSULE. PO SCH ×3 (09:17→22:28)
[2018-08-06 11:00] VITALS: BP 128/71
[2018-08-06] MEDS: DOXYCYCLINE HYCLATE 100 MG TABLET PO SCH ×2 (13:06→22:27)
[2018-08-06 15:00] VITALS: BP 183/73
--- NOTE | 2018-08-06 15:23 | PDOC ---
PROGRESS NOTES Assessment Assessment Generalized weakness. Cognitive impairment. Cought. HTN HLD. CHF? OA. Degenerative C-spine joint and disc diseases. RECOMMENDATIONS/PLAN: Treat medical diseases. OT/PT. HISTORY OF THE PRESENT ILLNESS: This is an 88-y-old AA male patient who was brought to the ER of [facility] complaining of weakness and poor appetite for 2 days. Patient states his also had a cough since we saw him in July 15, 2018. Patient denies any fever. Denies any nasal congestion denies any chest pain or shortness of breath. denies weight loss. No focalized motor deficits complained. Past Medical History Osteoarthritis. HLD. Past Surgical History Small bowel obstruction 2014 Family History High Cholestrol ALLERGY: NKDA MEDICATIONS: Refer to MAR SOCIAL HISTORY: Lives alone. Denies current smoking, drinking, and illicit drug use. REVIEW OF SYSTEMS: Constitutional: No malnutrition, weight loss, cachexia. Head: No traumatic brain or head injury. Skin: No edema, or rash. Ear: No infection. Eyes: No vision loss or color blindness. Nose: No bleeding or purulent discharges. Hearing: Hearing decrease. Neck: No injury. Cardiac: HLD. Pulmonary: No COPD. GI: No GI ulcer, GI bleeding. Urinary/genital: UTI. Endocrinologic: No cousin face, craniofacial dysmorphism, polydactyly. Skeletomuscular: Generalized weakness. Neurological: see HP. Psychiatric: Denies drug use/abuse. Otherwise, not [id number] review of systems. PHYSICAL EXAMINATION: General appearance is in subacute distress. HEENT: Normocephalic and nontraumatic. Eyes, nose, ears, and throat are unremarkable. Neck is supple. No lymphadenopathy. No crepitus. Cardiovascular: S1, S2, regular rate and rhythm. Pulmonary: mildly decreased to auscultation bilaterally. Abdomen: Bowel sounds are positive. Extremities: No rash, lesions, or edema. No restriction of range of motion NEUROLOGICAL EXAMINATION: Awake. Partially oriented to time, place and person. PERRL. EOMI. CN: no focal findings. Muscle tone: within normal. Muscle strength: 4+ DTR: 1+ Plantar reflex: Neutral response bilaterally Gait: not examined in bed. Sensory exam: no abnormal findings. No acute cerebellar signs elicited. F-T-N test fine. Objective Objective Vital Signs Date Time Temp Pulse Resp B/P (MAP) Pulse Ox O2 Delivery O2 Flow Rate FiO2 08/06/18 15:00 98.1 89 18 183/73 (109) 93 Room Air 98.1 Intake and Output 08/06/18 07:00 Intake Total 492 ml Output Total 275 ml Balance 217 ml Intake IV Total 492 ml Output Urine Total 275 ml # Voids 1 Vitals Signs Vitals VS - Last 72 Hours, by Label Date Time Temp Pulse Resp B/P (MAP) Pulse Ox O2 Delivery O2 Flow Rate FiO2 08/06/18 15:00 98.1 89 18 183/73 (109) 93 Room Air 98.1 08/06/18 11:00 98.3 84 20 128/71 (90) 95 Room Air 98.3 08/06/18 08:00 Room Air 08/06/18 07:00 92.5 81 18 131/82 (98) 96 Room Air 92.5 08/06/18 03:00 98.2 85 18 140/79 (99) 100 Room Air 98.2 08/05/18 23:00 98.2 87 18 133/75 (94) 93 Room Air 98.2 08/05/18 20:35 Room Air 08/05/18 19:00 98.1 98 18 139/82 (101) 93 Room Air 98.1 08/05/18 16:00 Room Air 08/05/18 15:20 98.3 100 18 134/80 (98) 96 Room Air 98.3 08/05/18 13:53 93 96 08/05/18 12:53 97 95 08/05/18 12:23 94 100 08/05/18 11:53 100 100 08/05/18 10:59 98.7 107 20 143/84 (103) 96 Room Air 98.7 Laboratory Laboratory Laboratory Tests Test 08/06/18 05:35 White Blood Count 9.7 x10^3/uL (4.0-11.0) Red Blood Count 4.34 x10^6/uL (4.30-5.70) Hemoglobin 13.0 g/dL (13.0-17.5) Hematocrit 38.8 % (39.0-53.0) Mean Corpuscular Volume 89 fL (79-100) Mean Corpuscular Hemoglobin 30 pg (25-35) Mean Corpuscular Hemoglobin Concent 34 g/dL (31-37) Red Cell Distribution Width 13.8 % (11.5-14.5) Platelet Count 205 x10^3/uL (140-400) Neutrophils (%) (Auto) 79 % (31-73) Lymphocytes (%) (Auto) 10 % (24-48) Monocytes (%) (Auto) 11 % (0-9) Eosinophils (%) (Auto) 0 % (0-3) Basophils (%) (Auto) 0 % (0-3) Neutrophils # (Auto) 7.7 x10^3uL (1.8-7.7) Lymphocytes # (Auto) 0.9 x10^3/uL (1.0-4.8) Monocytes # (Auto) 1.0 x10^3/uL (0.0-1.1) Eosinophils # (Auto) 0.0 x10^3/uL (0.0-0.7) Basophils # (Auto) 0.0 x10^3/uL (0.0-0.2) Sodium Level 140 mmol/L (136-145) Potassium Level 4.4 mmol/L (3.5-5.1) Chloride Level 104 mmol/L (98-107) Carbon Dioxide Level 27 mmol/L (21-32) Anion Gap 9 (6-14) Blood Urea Nitrogen 25 mg/dL (8-26) Creatinine 1.1 mg/dL (0.7-1.3) Estimated GFR (Cockcroft-Gault) 76.3 Glucose Level 106 mg/dL (70-99) Lactic Acid Level 1.0 mmol/L (0.4-2.0) Calcium Level 9.4 mg/dL (8.5-10.1) Microbiology 08/05/18 Blood Culture - Preliminary, Resulted NO GROWTH AFTER 1 DAY Medication Medications Current Medications Albuterol Sulfate (Ventolin Neb Soln) 2.5 mg PRN Q6HRS PRN INH SHORTNESS OF BREATH; Start 08/05/18 at 17:15 Benzonatate (Tessalon Perle) 100 mg [id number] PO Last administered on 08/06/18at 14:24; Start 08/05/18 at 18:00 Ceftriaxone Sodium (Rocephin) 1 gm Q24H IVP Last administered on 08/05/18at 20:02; Start 08/05/18 at 18:00; Stop 08/06/18 at 12:12; Status DC Doxycycline Hyclate (Vibra-Tab) 100 mg BID PO Last administered on 08/06/18at 13:06; Start 08/06/18 at 12:15 Enoxaparin Sodium (Lovenox 30mg Syringe) 30 mg Q24H SQ Last administered on 08/05/18at 22:15; Start 08/05/18 at 21:00; Stop 08/06/18 at 14:15; Status DC Enoxaparin Sodium (Lovenox 40mg Syringe) 40 mg Q24H SQ ; Start 08/06/18 at 21:00 Fish Oil (Fish Oil) 1,000 mg DAILY08 PO Last administered on 08/06/18at 09:17; Start 08/06/18 at 08:00 Lactobacillus Rhamnosus (Culturelle) 1 cap BID PO ; Start 08/06/18 at 21:00 Polyethylene Glycol (miraLAX PACKET) 17 gm DAILY PO Last administered on 08/06/18at 09:17; Start 08/06/18 at 09:00 Comment Review of Relevant I have reviewed the following items katlin (where applicable) has been applied. ANTHONY HAAS MD August 06, 2018 15:23
--- NOTE | 2018-08-06 18:01 | PDOC ---
PROGRESS NOTES Chief Complaint Chief Complaint 1. generalized weakness 2, cough, bronchitis 3. leukocytosis 4. ruled out uti plan will switch to po doxycycline tele monitor PT/OT URINE CULT negative dvt prophylaxis home meds hopefully discharge in the am History of Present Illness History of Present Illness Patient feeling better compared to admission, no acute events reported overnight. NO fever or chills. reassurance provided. Vitals Vitals Vital Signs Date Time Temp Pulse Resp B/P (MAP) Pulse Ox O2 Delivery O2 Flow Rate FiO2 08/06/18 15:00 98.1 89 18 183/73 (109) 93 Room Air 98.1 Physical Exam General: Alert, Oriented X3, Cooperative, mild distress Abdomen: Normal bowel sounds, Soft Extremities: No cyanosis Labs LABS Laboratory Tests Test 08/06/18 05:35 White Blood Count 9.7 x10^3/uL (4.0-11.0) Red Blood Count 4.34 x10^6/uL (4.30-5.70) Hemoglobin 13.0 g/dL (13.0-17.5) Hematocrit 38.8 % (39.0-53.0) Mean Corpuscular Volume 89 fL (79-100) Mean Corpuscular Hemoglobin 30 pg (25-35) Mean Corpuscular Hemoglobin Concent 34 g/dL (31-37) Red Cell Distribution Width 13.8 % (11.5-14.5) Platelet Count 205 x10^3/uL (140-400) Neutrophils (%) (Auto) 79 % (31-73) Lymphocytes (%) (Auto) 10 % (24-48) Monocytes (%) (Auto) 11 % (0-9) Eosinophils (%) (Auto) 0 % (0-3) Basophils (%) (Auto) 0 % (0-3) Neutrophils # (Auto) 7.7 x10^3uL (1.8-7.7) Lymphocytes # (Auto) 0.9 x10^3/uL (1.0-4.8) Monocytes # (Auto) 1.0 x10^3/uL (0.0-1.1) Eosinophils # (Auto) 0.0 x10^3/uL (0.0-0.7) Basophils # (Auto) 0.0 x10^3/uL (0.0-0.2) Sodium Level 140 mmol/L (136-145) Potassium Level 4.4 mmol/L (3.5-5.1) Chloride Level 104 mmol/L (98-107) Carbon Dioxide Level 27 mmol/L (21-32) Anion Gap 9 (6-14) Blood Urea Nitrogen 25 mg/dL (8-26) Creatinine 1.1 mg/dL (0.7-1.3) Estimated GFR (Cockcroft-Gault) 76.3 Glucose Level 106 mg/dL (70-99) Lactic Acid Level 1.0 mmol/L (0.4-2.0) Calcium Level 9.4 mg/dL (8.5-10.1) Assessment and Plan Assessmemt and Plan Problems Medical Problems: (1) Cough Status: Acute (2) Generalized weakness Status: Acute Comment Review of Relevant I have reviewed the following items katlin (where applicable) has been applied. Labs Laboratory Tests Test 08/05/18 11:20 08/05/18 13:23 08/06/18 05:35 White Blood Count 12.1 x10^3/uL (4.0-11.0) 9.7 x10^3/uL (4.0-11.0) Red Blood Count 4.87 x10^6/uL (4.30-5.70) 4.34 x10^6/uL (4.30-5.70) Hemoglobin 14.0 g/dL (13.0-17.5) 13.0 g/dL (13.0-17.5) Hematocrit 43.3 % (39.0-53.0) 38.8 % (39.0-53.0) Mean Corpuscular Volume 89 fL (79-100) 89 fL (79-100) Mean Corpuscular Hemoglobin 29 pg (25-35) 30 pg (25-35) Mean Corpuscular Hemoglobin Concent 32 g/dL (31-37) 34 g/dL (31-37) Red Cell Distribution Width 14.1 % (11.5-14.5) 13.8 % (11.5-14.5) Platelet Count 253 x10^3/uL (140-400) 205 x10^3/uL (140-400) Neutrophils (%) (Auto) 90 % (31-73) 79 % (31-73) Lymphocytes (%) (Auto) 3 % (24-48) 10 % (24-48) Monocytes (%) (Auto) 8 % (0-9) 11 % (0-9) Eosinophils (%) (Auto) 0 % (0-3) 0 % (0-3) Basophils (%) (Auto) 0 % (0-3) 0 % (0-3) Neutrophils # (Auto) 10.9 x10^3uL (1.8-7.7) 7.7 x10^3uL (1.8-7.7) Lymphocytes # (Auto) 0.3 x10^3/uL (1.0-4.8) 0.9 x10^3/uL (1.0-4.8) Monocytes # (Auto) 0.9 x10^3/uL (0.0-1.1) 1.0 x10^3/uL (0.0-1.1) Eosinophils # (Auto) 0.0 x10^3/uL (0.0-0.7) 0.0 x10^3/uL (0.0-0.7) Basophils # (Auto) 0.0 x10^3/uL (0.0-0.2) 0.0 x10^3/uL (0.0-0.2) Segmented Neutrophils % 58 % (35-66) Band Neutrophils % 30 % (0-9) Lymphocytes % 3 % (24-48) Monocytes % 9 % (0-10) Platelet Estimate Adequate (ADEQUATE) Sodium Level 139 mmol/L (136-145) 140 mmol/L (136-145) Potassium Level 4.2 mmol/L (3.5-5.1) 4.4 mmol/L (3.5-5.1) Chloride Level 102 mmol/L (98-107) 104 mmol/L (98-107) Carbon Dioxide Level 29 mmol/L (21-32) 27 mmol/L (21-32) Anion Gap 8 (6-14) 9 (6-14) Blood Urea Nitrogen 29 mg/dL (8-26) 25 mg/dL (8-26) Creatinine 1.3 mg/dL (0.7-1.3) 1.1 mg/dL (0.7-1.3) Estimated GFR (Cockcroft-Gault) 62.9 76.3 BUN/Creatinine Ratio 22 (6-20) Glucose Level 138 mg/dL (70-99) 106 mg/dL (70-99) Calcium Level 9.8 mg/dL (8.5-10.1) 9.4 mg/dL (8.5-10.1) Magnesium Level 2.1 mg/dL (1.8-2.4) Total Bilirubin 1.0 mg/dL (0.2-1.0) Aspartate Amino Transf (AST/SGOT) 26 U/L (15-37) Alanine Aminotransferase (ALT/SGPT) 26 U/L (16-63) Alkaline Phosphatase 86 U/L (46-116) Creatine Kinase 73 U/L (39-308) Creatine Kinase MB (Mass) 1.0 ng/mL (0.0-3.6) Creatine Kinase MB Relative Index % (0-4) Troponin I Quantitative < 0.017 ng/mL (0.000-0.055) [id number]-Type Natriuretic Peptide 267 pg/mL (0-449) Total Protein 7.7 g/dL (6.4-8.2) Albumin 2.9 g/dL (3.4-5.0) Albumin/Globulin Ratio 0.6 (1.0-1.7) Vitamin B12 Level 315 pg/mL (247-911) Thyroid Stimulating Hormone (TSH) 2.132 uIU/mL (0.358-3.74) Urine Color Jennifer Urine Clarity Clear Urine pH 6.5 Urine Specific [place] 1.025 Urine Protein Negative mg/dL (NEG-TRACE) Urine Glucose (UA) Negative mg/dL (NEG) Urine Ketones (Stick) Negative mg/dL (NEG) Urine Blood Negative (NEG) Urine Nitrite Negative (NEG) Urine Bilirubin Negative (NEG) Urine Urobilinogen Dipstick 0.2 mg/dL (0.2 mg/dL) Urine Leukocyte Esterase Small (NEG) Urine RBC Occ /HPF (0-2) Urine WBC 1-4 /HPF (0-4) Urine Squamous Epithelial Cells Occ /LPF Urine Bacteria 0 /HPF (0-FEW) Urine Mucus Mod /LPF Lactic Acid Level 1.0 mmol/L (0.4-2.0) Laboratory Tests Test 08/06/18 05:35 White Blood Count 9.7 x10^3/uL (4.0-11.0) Red Blood Count 4.34 x10^6/uL (4.30-5.70) Hemoglobin 13.0 g/dL (13.0-17.5) Hematocrit 38.8 % (39.0-53.0) Mean Corpuscular Volume 89 fL (79-100) Mean Corpuscular Hemoglobin 30 pg (25-35) Mean Corpuscular Hemoglobin Concent 34 g/dL (31-37) Red Cell Distribution Width 13.8 % (11.5-14.5) Platelet Count 205 x10^3/uL (140-400) Neutrophils (%) (Auto) 79 % (31-73) Lymphocytes (%) (Auto) 10 % (24-48) Monocytes (%) (Auto) 11 % (0-9) Eosinophils (%) (Auto) 0 % (0-3) Basophils (%) (Auto) 0 % (0-3) Neutrophils # (Auto) 7.7 x10^3uL (1.8-7.7) Lymphocytes # (Auto) 0.9 x10^3/uL (1.0-4.8) Monocytes # (Auto) 1.0 x10^3/uL (0.0-1.1) Eosinophils # (Auto) 0.0 x10^3/uL (0.0-0.7) Basophils # (Auto) 0.0 x10^3/uL (0.0-0.2) Sodium Level 140 mmol/L (136-145) Potassium Level 4.4 mmol/L (3.5-5.1) Chloride Level 104 mmol/L (98-107) Carbon Dioxide Level 27 mmol/L (21-32) Anion Gap 9 (6-14) Blood Urea Nitrogen 25 mg/dL (8-26) Creatinine 1.1 mg/dL (0.7-1.3) Estimated GFR (Cockcroft-Gault) 76.3 Glucose Level 106 mg/dL (70-99) Lactic Acid Level 1.0 mmol/L (0.4-2.0) Calcium Level 9.4 mg/dL (8.5-10.1) Microbiology 08/05/18 Blood Culture - Preliminary, Resulted NO GROWTH AFTER 1 DAY Medications Current Medications Sodium Chloride 1,000 ml @ 1,000 mls/hr 1X ONCE IV Last administered on 08/05/18at 11:29; Start 08/05/18 at 11:30; Stop 08/05/18 at 12:29; Status DC Ondansetron HCl (Zofran) 4 mg PRN Q8HRS PRN IV NAUSEA/VOMITING; Start 08/05/18 at 12:30; Stop 08/06/18 at 12:29; Status DC Acetaminophen (Tylenol) 650 mg PRN Q4HRS PRN PO FEVER; Start 08/05/18 at 12:30; Stop 08/06/18 at 12:29; Status DC Sodium Chloride 1,000 ml @ 75 mls/hr 1X ONCE IV Last administered on 08/05/18at 20:03; Start 08/05/18 at 12:30; Stop 08/06/18 at 01:49; Status DC Ceftriaxone Sodium (Rocephin) 1 gm Q24H IVP Last administered on 08/05/18at 20:02; Start 08/05/18 at 18:00; Stop 08/06/18 at 12:12; Status DC Albuterol Sulfate (Ventolin Neb Soln) 2.5 mg PRN Q6HRS PRN INH SHORTNESS OF BREATH; Start 08/05/18 at 17:15 Benzonatate (Tessalon Perle) 100 mg [id number] PO Last administered on 08/06/18at 14:24; Start 08/05/18 at 18:00 Fish Oil (Fish Oil) 1,000 mg DAILY08 PO Last administered on 08/06/18at 09:17; Start 08/06/18 at 08:00 Polyethylene Glycol (miraLAX PACKET) 17 gm DAILY PO Last administered on 08/06/18at 09:17; Start 08/06/18 at 09:00 Enoxaparin Sodium (Lovenox 30mg Syringe) 30 mg Q24H SQ Last administered on 08/05/18at 22:15; Start 08/05/18 at 21:00; Stop 08/06/18 at 14:15; Status DC Doxycycline Hyclate (Vibra-Tab) 100 mg BID PO Last administered on 08/06/18at 13:06; Start 08/06/18 at 12:15 Lactobacillus Rhamnosus (Culturelle) 1 cap BID PO ; Start 08/06/18 at 21:00 Enoxaparin Sodium (Lovenox 40mg Syringe) 40 mg Q24H SQ ; Start 08/06/18 at 21:00 Active Scripts Active Tessalon Perle (Benzonatate) 100 Mg Capsule 1 Cap PO TID 5 Days Proair Hfa Inhaler (Albuterol Sulfate) 8.5 Gm Hfa.aer.ad 1 Puff INH PRN Q6HRS PRN 7 Days Azithromycin Tablet (Azithromycin) 250 Mg Tablet 1 Pkg PO UD Proair Hfa Inhaler (Albuterol Sulfate) 8.5 Gm Hfa.aer.ad 1 Puff INH PRN Q6HRS PRN Prednisone 50 Mg Tablet 50 Mg PO DAILY 5 Days Augmentin 500-125 Tablet (Amoxicillin/Potassium Clav) 1 Each Tablet 1 Tab PO BID Miralax (Polyethylene Glycol 3350) 17 Gm Powd.pack 1 Packet PO DAILY Reported Fish Oil ([place]-3 Fatty Acids) 500 Mg Capsule.dr 500 Mg PO DAILY08 Vitals/I & O Vital Sign - Last 24 Hours 08/05/18 08/05/18 08/05/18 08/06/18 19:00 20:35 23:00 03:00 Temp 98.1 98.2 98.2 98.1 98.2 98.2 Pulse 98 87 85 Resp 18 18 18 B/P (MAP) 139/82 (101) 133/75 (94) 140/79 (99) Pulse Ox 93 93 100 O2 Delivery Room Air Room Air Room Air Room Air 08/06/18 08/06/18 08/06/18 08/06/18 07:00 08:00 11:00 15:00 Temp 92.5 98.3 98.1 92.5 98.3 98.1 Pulse 81 84 89 Resp 18 20 18 B/P (MAP) 131/82 (98) 128/71 (90) 183/73 (109) Pulse Ox 96 95 93 O2 Delivery Room Air Room Air Room Air Room Air Intake and Output 08/05/18 08/05/18 08/06/18 14:59 22:59 06:59 Intake Total 492 ml Output Total 275 ml Balance 217 ml KUNAL ARROYO MD August 06, 2018 18:01
[2018-08-06 19:00] VITALS: BP 132/84
[2018-08-06] MEDS ORDERED: ENOXAPARIN 40 MG/0.4 ML SYRINGE. SQ SCH (21:00)
[2018-08-06] MEDS: LACTOBACILLUS RHAMNOSUS GG 1 CAPSULE. PO SCH (22:27)
[2018-08-06 23:00] VITALS: BP 155/87
[2018-08-07 03:00] VITALS: BP 135/87
[2018-08-07 07:00] VITALS: BP 152/96
[2018-08-07] MEDS: BENZONATATE 100 MG CAPSULE. PO SCH (08:35)
[2018-08-07] MEDS: POLYETHYLENE GLYCOL 3350 17 GM PACKET. PO SCH (08:35)
[2018-08-07] MEDS: LACTOBACILLUS RHAMNOSUS GG 1 CAPSULE. PO SCH (08:35)
[2018-08-07] MEDS: OMEGA-3 FATTY ACIDS/FISH OIL 1,000 MG CAPSULE. PO SCH (08:35)
[2018-08-07] MEDS: DOXYCYCLINE HYCLATE 100 MG TABLET PO SCH (08:35)
[2018-08-07 11:00] VITALS: BP 141/83
[2018-08-07] MEDS ORDERED: DOXY100T PO (11:43)
--- NOTE | 2018-08-07 12:08 | PDOC3 ---
Discharge Summary Visit Information Date of Admission: August 05, 2018 Date of Discharge: August 07, 2018 Admitting Diagnosis Comment: 1. generalized weakness 2, cough, bronchitis 3. leukocytosis 4. possible uti Final Diagnosis Problems Medical Problems: (1) Cough secondary to acute bronchitis Status: Acute (2) Generalized weakness improved Status: Acute Brief Hospital Course Allergies Allergies Coded Allergies Type Severity Reaction Last Updated Verified No Known Drug Allergies 11/13/13 No Vital Signs Vital Signs Date Time Temp Pulse Resp B/P (MAP) Pulse Ox O2 Delivery O2 Flow Rate FiO2 08/07/18 11:00 97.4 85 18 141/83 (102) 96 Room Air 97.4 Gen.: Thin looking in no apparent distress Head: Normal shape atraumatic Eyes: Pupils equal reactive to light and accommodation, normal conjunctivae and lids Ears: Normal shape Nose: Normal shape no trauma Mouth: No exudates of the back of throat no thrush no lesions Neck: Supple no JVD no carotid bruit or lymphadenopathy no thyromegaly Chest: Coarse breath sounds but improved compared to admission no rails no crackles no rhonchi and no expiratory wheezing auscultated Cardiovascular: S1-S2 regular rhythm no murmurs gallops or rubs Abdomen: Bowel sounds present soft nontender no hepatosplenomegaly appreciated sign Extremities: No clubbing no cyanosis no edema peripheral pulses palpated bilaterally Neurological: Alert awake oriented in person time place and situation, cranial nerves II through XII intact, no motor or sensory deficits appreciated Psych: Appropriate mood, cooperative Lab Results Laboratory Tests Test 08/05/18 13:23 08/06/18 05:35 Urine Color Jennifer Urine Clarity Clear Urine pH 6.5 Urine Specific [place] 1.025 Urine Protein Negative mg/dL (NEG-TRACE) Urine Glucose (UA) Negative mg/dL (NEG) Urine Ketones (Stick) Negative mg/dL (NEG) Urine Blood Negative (NEG) Urine Nitrite Negative (NEG) Urine Bilirubin Negative (NEG) Urine Urobilinogen Dipstick 0.2 mg/dL (0.2 mg/dL) Urine Leukocyte Esterase Small (NEG) Urine RBC Occ /HPF (0-2) Urine WBC 1-4 /HPF (0-4) Urine Squamous Epithelial Cells Occ /LPF Urine Bacteria 0 /HPF (0-FEW) Urine Mucus Mod /LPF White Blood Count 9.7 x10^3/uL (4.0-11.0) Red Blood Count 4.34 x10^6/uL (4.30-5.70) Hemoglobin 13.0 g/dL (13.0-17.5) Hematocrit 38.8 % (39.0-53.0) Mean Corpuscular Volume 89 fL (79-100) Mean Corpuscular Hemoglobin 30 pg (25-35) Mean Corpuscular Hemoglobin Concent 34 g/dL (31-37) Red Cell Distribution Width 13.8 % (11.5-14.5) Platelet Count 205 x10^3/uL (140-400) Neutrophils (%) (Auto) 79 % (31-73) Lymphocytes (%) (Auto) 10 % (24-48) Monocytes (%) (Auto) 11 % (0-9) Eosinophils (%) (Auto) 0 % (0-3) Basophils (%) (Auto) 0 % (0-3) Neutrophils # (Auto) 7.7 x10^3uL (1.8-7.7) Lymphocytes # (Auto) 0.9 x10^3/uL (1.0-4.8) Monocytes # (Auto) 1.0 x10^3/uL (0.0-1.1) Eosinophils # (Auto) 0.0 x10^3/uL (0.0-0.7) Basophils # (Auto) 0.0 x10^3/uL (0.0-0.2) Sodium Level 140 mmol/L (136-145) Potassium Level 4.4 mmol/L (3.5-5.1) Chloride Level 104 mmol/L (98-107) Carbon Dioxide Level 27 mmol/L (21-32) Anion Gap 9 (6-14) Blood Urea Nitrogen 25 mg/dL (8-26) Creatinine 1.1 mg/dL (0.7-1.3) Estimated GFR (Cockcroft-Gault) 76.3 Glucose Level 106 mg/dL (70-99) Lactic Acid Level 1.0 mmol/L (0.4-2.0) Calcium Level 9.4 mg/dL (8.5-10.1) Brief Hospital Course SEEN IN ER , presents to the ED today complaining of weakness and poor appetite for 2 days. Patient states his also had a cough since we saw him in July 15, 2018. Patient denies any fever. Denies any nasal congestion denies any chest pain or shortness of breath. denies weight loss ua abnormal, lives alone He was admitted to the medical floor where he was started on broad-spectrum antibiotics, had some cough and sputum production. The patient was suspected to have a urinary tract infection despite him not having urinary symptoms her UA was checked and was negative. This was ruled out, the patient was transitioned from Rocephin to doxycycline by mouth and he remained afebrile and hemodynamically stable throughout the ensuing 24 hours. Patient was deemed appropriate for discharge with instructions to follow-up with his primary care physician. Signs and symptoms of alarm were discussed with the patient prior to his departure. The patient denied chest pain no palpitations no shortness of breath was voiced during my encounter on the day of discharge In good spirits to be this discharge home Discharge Information Condition at Discharge: Improved Follow Up: Weeks Disposition/Orders: D/C to Home Scheduled Benzonatate (Tessalon Perle) 100 Mg Capsule, 1 CAP PO TID for 5 Days, #15 Prescribed by: NICK VÁZQUEZ on 07/15/18 1145 Last Action: Converted on 08/05/181714 by TOM OROZCO MD Doxycycline Hyclate (Doxycycline Hyclate) 100 Mg Tablet, 100 MG PO BID for Bronchitis for 4 Days, #8 Prescribed by: KUNAL ARROYO MD on 08/07/18 1143 [place]-3 Fatty Acids (Fish Oil) 500 Mg Capsule.dr, 500 MG PO DAILY08, (Reported) Entered as Reported by: Tanya Purcell on 11/14/13 0318 Last Action: Converted on 08/05/181714 by TOM OROZCO MD Polyethylene Glycol 3350 (Miralax) 17 Gm Powd.pack, 1 PACKET PO DAILY, #30 Ref 3 Prescribed by: KATHI COX on 11/20/13 1337 Last Action: Converted on 08/05/181714 by TOM OROZCO MD Prednisone (Prednisone) 50 Mg Tablet, 50 MG PO DAILY for 5 Days, #5 Prescribed by: NICK VÁZQUEZ on 12/08/17 1521 Last Action: HELD on 08/05/181714 by TOM OROZCO MD Scheduled PRN Albuterol Sulfate (Proair Hfa Inhaler) 8.5 Gm Hfa.aer.ad, 1 PUFF INH PRN Q6HRS PRN for SHORTNESS OF BREATH, #1 Ref 0 Prescribed by: NICK VÁZQUEZ on 12/08/17 1522 Last Action: Continued on 08/05/181714 by TOM OROZCO MD Albuterol Sulfate (Proair Hfa Inhaler) 8.5 Gm Hfa.aer.ad, 1 PUFF INH PRN Q6HRS PRN for SHORTNESS OF BREATH for 7 Days, #1 Ref 0 Prescribed by: NICK VÁZQUEZ on 07/15/181144 Last Action: HELD on 08/05/181714 by TOM OROZCO MD Discontinued Medications Amoxicillin/Potassium Clav (Augmentin 500-125 Tablet) 1 Each Tablet, 1 TAB PO BID, #5 Prescribed by: KATHI COX on 11/20/13 1337 Last Action: HELD on 08/05/181714 by TOM OROZCO MD Azithromycin (Azithromycin Tablet) 250 Mg Tablet, 1 PKG PO UD, #6 Prescribed by: NICK VÁZQUEZ on 07/15/18 114 Last Action: HELD on 08/05/181714 by MD DINA OKEEFE HECTOR M MD August 07, 2018 12:07
--- NOTE | 2018-08-07 13:41 | NUR ---
Discharge Note: EAN MIRAMONTES Discharge instructions and discharge home medications reviewed with Patient and a copy given. All questions have been answered and understanding verbalized. The following instructions and handouts were given: discharge instructions, new prescription, education and follow up recommendation. Discontinued lines and drains: Peripheral IV discontinued intact. Patient discharged to Home or Self Care with Family Member via Wheelchair off unit by [employer].
--- NOTE | 2018-08-07 16:53 | PDOC ---
PROGRESS NOTES Assessment Assessment Generalized weakness. Cognitive impairment. Cought. HTN HLD. CHF? OA. Degenerative C-spine joint and disc diseases. No cord compression or nerve roots impingement. RECOMMENDATIONS/PLAN: Treat medical diseases. OT/PT. FU with PCP. HISTORY OF THE PRESENT ILLNESS: This is an 88-y-old AA male patient who was brought to the ER of [facility] complaining of weakness and poor appetite for 2 days. Patient states his also had a cough since we saw him in July 15, 2018. Patient denies any fever. Denies any nasal congestion denies any chest pain or shortness of breath. denies weight loss. No focalized motor deficits complained. Past Medical History Osteoarthritis. HLD. Past Surgical History Small bowel obstruction 2014 Family History High Cholestrol ALLERGY: NKDA MEDICATIONS: Refer to MAR SOCIAL HISTORY: Lives alone. Denies current smoking, drinking, and illicit drug use. REVIEW OF SYSTEMS: Constitutional: No malnutrition, weight loss, cachexia. Head: No traumatic brain or head injury. Skin: No edema, or rash. Ear: No infection. Eyes: No vision loss or color blindness. Nose: No bleeding or purulent discharges. Hearing: Hearing decrease. Neck: No injury. Cardiac: HLD. Pulmonary: No COPD. GI: No GI ulcer, GI bleeding. Urinary/genital: UTI. Endocrinologic: No cousin face, craniofacial dysmorphism, polydactyly. Skeletomuscular: Generalized weakness. Neurological: see HP. Psychiatric: Denies drug use/abuse. Otherwise, not [id number] review of systems. PHYSICAL EXAMINATION: General appearance is in subacute distress. HEENT: Normocephalic and nontraumatic. Eyes, nose, ears, and throat are unremarkable. Neck is supple. No lymphadenopathy. No crepitus. Cardiovascular: S1, S2, regular rate and rhythm. Pulmonary: mildly decreased to auscultation bilaterally. Abdomen: Bowel sounds are positive. Extremities: No rash, lesions, or edema. No restriction of range of motion NEUROLOGICAL EXAMINATION: Awake. Partially oriented to time, place and person. PERRL. EOMI. CN: no focal findings. Muscle tone: within normal. Muscle strength: 4+ DTR: 1+ Plantar reflex: Neutral response bilaterally Gait: Able to walk w/o assistance.. Sensory exam: no abnormal findings. No acute cerebellar signs elicited. F-T-N test fine. Objective Objective Vital Signs Date Time Temp Pulse Resp B/P (MAP) Pulse Ox O2 Delivery O2 Flow Rate FiO2 08/07/18 11:00 97.4 85 18 141/83 (102) 96 Room Air 97.4 Intake and Output 08/07/18 06:59 Intake Total 700 ml Balance 700 ml Intake Oral 700 ml # Voids 5 Vitals Signs Vitals VS - Last 72 Hours, by Label Date Time Temp Pulse Resp B/P (MAP) Pulse Ox O2 Delivery O2 Flow Rate FiO2 08/07/18 11:00 97.4 85 18 141/83 (102) 96 Room Air 97.4 08/07/18 08:30 Room Air 08/07/18 07:00 98.3 66 18 152/96 (114) 92 Room Air 98.3 08/07/18 03:00 99.1 82 20 135/87 (103) 95 Room Air 99.1 08/06/18 23:00 98.1 87 155/87 (109) 95 Room Air 98.1 08/06/18 20:00 Room Air 08/06/18 19:00 98.6 95 20 132/84 (100) 95 Room Air 98.6 08/06/18 15:00 98.1 89 18 183/73 (109) 93 Room Air 98.1 08/06/18 11:00 98.3 84 20 128/71 (90) 95 Room Air 98.3 08/06/18 08:00 Room Air 08/06/18 07:00 92.5 81 18 131/82 (98) 96 Room Air 92.5 Laboratory Laboratory Microbiology 08/06/18 Blood Culture - Preliminary, Resulted NO GROWTH AFTER 1 DAY Medication Medications Current Medications Enoxaparin Sodium (Lovenox 40mg Syringe) 40 mg Q24H SQ Last administered on 08/06/18at 22:28; Start 08/06/18 at 21:00; Stop 08/07/18 at 15:03; Status DC Lactobacillus Rhamnosus (Culturelle) 1 cap BID PO Last administered on 08/07/18at 08:35; Start 08/06/18 at 21:00; Stop 08/07/18 at 15:03; Status DC Comment Review of Relevant I have reviewed the following items katlin (where applicable) has been applied. ANTHONY HAAS MD August 07, 2018 16:53
== END 2018-08-07 13:41 | disposition home or self-care (01) | DRG 203 ==
LOC: ER 10:41 → 5 NORTH 12:00
PROVIDERS: ADMIT Family Medicine; ATTEND Family Medicine
DX: J20.9 Acute bronchitis, unspecified (principal); E78.5 Hyperlipidemia, unspecified; I10 Essential (primary) hypertension; M19.90 Unspecified osteoarthritis, unspecified site; Z87.19 Personal history of other diseases of the digestive system
CPT/HCPCS: 36415; 70450; 71045; 72125; 80048; 80053; 81001; 82553; 82607; 83605; 83735; 83880; 84443; 84484; 85007; 85025; 87040; 93005; 93880; 96360; J0696; J1650; J7030; 99285-25

== ENCOUNTER → 2018-10-25 | Outpatient (CLI) | payer OTHER ==
[~2018-10-25] MED LIST changes: +DOXY100T PO
--- NOTE | 2018-10-25 12:54 | CARD ---
MR#: [id number] Date of Study: 10/25/2018 Ordering Physician: SEBLE JULIAN, Referring Physician: SEBLE JULIAN, Tech: Jenna Copeland APPROVED REPORT EXAM: Two-dimensional and M-mode echocardiogram with Doppler and color Doppler. Other Information Quality : FairHR: 72bpm Technically limited study due to body habitus. INDICATION Dyspnea RISK FACTORS Hypertension Previous smoker 2D DIMENSIONS RVDd3.3 (2.9-3.5cm)Left Atrium(2D)3.0 (1.6-4.0cm) IVSd1.2 (0.7-1.1cm)Aortic Root(2D)3.6 (2.0-3.7cm) LVDd4.7 (3.9-5.9cm)LVOT Diameter2.2 (1.8-2.4cm) PWd1.2 (0.7-1.1cm)LVDs3.3 (2.5-4.0cm) FS (%) 30.2 %SV57.9 ml LVEF(%)57.6 (>50%) Aortic Valve AoV Peak Bala.125.0cm/sAoV VTI20.0cm AO Peak GR.6.2mmHgLVOT Peak Bala.88.4cm/s LVOT VTI 15.70cmAO Mean GR.3mmHg MARISOL (VMAX)1.55vb0VEY (VTI)2.92cm2 AI P 1/2 [id number] Mitral Valve MV E Zapgozzy27.9cm/sMV A Rldoajpo47.7cm/s E/A Ratio0.5 TDI E/Lateral E'7.6E/Medial E'8.4 Pulmonary Valve PV Peak Gouirblq68.0cm/sPV Peak Grad.3mmHg Tricuspid Valve TR P. [id number]/sRAP [id number] TR Peak Gr.43qfRnSYVE45cvOs Pulmonary Vein S1 Ctkzstvj58.8cm/sD2 Lmpsmkth41.1cm/s PVa [id number] LEFT VENTRICLE The left ventricle is normal size. There is borderline to mild concentric left ventricular hypertroph y. The left ventricular systolic function is normal and the ejection fraction is within normal range. EF 55% There is normal LV segmental wall motion. Transmitral Doppler flow pattern is Grade I-abnorma l relaxation pattern. RIGHT VENTRICLE The right ventricle is normal size. There is normal right ventricular wall thickness. The right ventr icular systolic function is normal. ATRIA The left atrium size is normal. The right atrium is borderline dilated. The interatrial septum is int act with no evidence for an atrial septal defect or patent foramen ovale as noted on 2-D or Doppler i maging. AORTIC VALVE The aortic valve is thickened but opens well. Doppler and Color Flow revealed trace aortic regurgitat ion. There is no significant aortic valvular stenosis. MITRAL VALVE The mitral valve is normal in structure and function. There is no evidence of mitral valve prolapse. There is no mitral valve stenosis. Doppler and Color-flow revealed trace mitral regurgitation. TRICUSPID VALVE The tricuspid valve is normal in structure and function. Doppler and Color Flow revealed trace tricus pid regurgitation with an estimated PAP of 31 mmHg. There is no tricuspid valve stenosis. PULMONIC VALVE The pulmonic valve is not well visualized. Doppler and Color Flow revealed no pulmonic valvular regur gitation. There is no pulmonic valvular stenosis. GREAT VESSELS The aortic root is normal in size. The IVC is normal in size and collapses >50% with inspiration. PERICARDIAL EFFUSION There is no evidence of significant pericardial effusion. Critical Notification Critical Value: No <Conclusion> The left ventricular systolic function is normal and the ejection fraction is within normal range. EF 55% There is normal LV segmental wall motion. Signed by : Jhony Edwards, Electronically Approved : 10/25/2018 12:54:07
== END | disposition home or self-care (01) ==
LOC: ECHO 09:52
PROVIDERS: ATTEND Internal Medicine Critical Care Medicine
DX: I51.7 Cardiomegaly (principal)
CPT/HCPCS: 93306